=== PATIENT | female | born 1965 | race Caucasian/White ===

== ENCOUNTER 2016-09-14 09:17 | Inpatient (IN) | payer OTHER ==
[~2016-09-14] VITALS: Ht 165.1 cm; Wt 90.7 kg
[~2016-09-14 09:17] MED LIST: FLEXERIL10 MG PO; MOTRIN800 MG PO
--- NOTE | 2016-09-14 09:20 | NUR ---
PT BIBA AFTER FOUND UNRESPONSIVE. PER POLICE SHE HAD 3 EMPTY BOTTLES (NORVASC,LABATELOL,XANAX) PER POLICE SHE LOST HER JOB AND IS GOING THROUGH A DIVORCE. POLICE GAVE HER 2MG DOSE OF NARCAN IN FIELD WITH NO RESPONSE. EMS ADMINISTERED 1 MG GLUCAGON. HEART RATE WAS 48 WHEN EMS ARRIVED AND S/P GLUCAGON HR WAS 72. HX DEPRESSION..
--- NOTE | 2016-09-14 09:20 | NUR ---
DR URIAS AT BEDSIDE
--- NOTE | 2016-09-14 09:22 | NUR ---
PT IS CHANGED AND CLEANED. PLACED ON MONITOR
--- NOTE | 2016-09-14 09:26 | ED GENERAL ADULT ---
History of Present Illness General Chief Complaint: Altered Mental Status Stated Complaint: BIBA ?OVERDOSE Source: family, old records, EMS Exam Limitations: clinical condition Vital Signs & Intake/Output Vital Signs & Intake/Output Vital Signs Date Time Temp Pulse Resp B/P B/P Pulse O2 O2 Flow FiO2 Mean Ox Delivery Rate 09/14 1600 100 09/14 1600 100 09/14 1515 52 78/40 09/14 1440 58 78/42 09/14 1338 95.2 52 10 88/56 93 Nasal 5.0L Cannula 09/14 1252 50 80/50 09/14 1216 95.8 56 12 88/58 93 Nasal 5.0L Cannula 09/14 1148 50 78/58 09/14 1117 95.4 55 10 88/54 90 Nasal 5.0L Cannula 09/14 1055 56 72/44 09/14 1045 50 10 78/48 90 Nasal 3.0L Cannula 09/14 1020 54 83/54 90 / 1002 96.0 09/14 0954 94.3 55 12 89/52 96 09/14 0934 95.0 57 6 98/63 94 Nasal 2.0L Cannula 09/14 0930 93 Nasal 5.0L Cannula Allergies Coded Allergies: NO KNOWN ALLERGIES (11/28/14) Reconcile Medications CYCLOBENZAPRINE HCL (Flexeril) 10 MG TAB 1 TAB PO TID PRN SPASM Avoid operating motor vehicle or heavy machinery Empagliflozin (Jardiance) 10 MG TABLET 1 TAB PO DAILY dm (Reported) Ibuprofen (Motrin) 800 MG TAB 1 TAB PO TID PRN PAIN Insulin Glargine,Hum.rec.anlog (Lantus Solostar) 100 UNIT/ML (3 ML) INSULN.PEN 45 UNIT SC QPM dm (Reported) Levothyroxine Sodium (Synthroid) 100 MCG TABLET 1 TAB PO DAILY thyroidism ( Reported) Metformin HCl (Metformin HCl ER) 500 MG TAB.ER.24 1 TAB PO DAILY diabetes ( Reported) Quetiapine Fumarate (Seroquel XR) 400 MG TAB.ER.24H 1 TAB PO QPM depression ( Reported) Triage Nurses Notes Reviewed? yes HPI: Patient and her are going through divorce. This morning her son found her semi-responsive on the floor with empty pill bottles next to her. The pill bottles were for Xanax, labetalol and Norvasc. All the bottles are from 2016 so it is unknown known how many pills were in each of the bottles. Patient has no known history of depression or suicide attempt. Per family the only medical history is diabetes and hypothyroidism. Patient received 2 mg of intranasal Narcan by the police department without any effect. Upon EMS arrival patient was found to be bradycardic in the upper 40s. Patient received 1 mg of IV glucagon and her heart rate increased into the 60s. Her fingerstick was 259. Upon presentation to the emergency department patient is semi-responsive and will open up her eyes to commands. Only verbal response is to say no. Patient does have a gag reflex. Past History Travel History Traveled to [place] past 21 day No Medical History Any Pertinent Medical History? see below for history Neurological: NONE EENT: NONE Cardiovascular: NONE Respiratory: NONE Gastrointestinal: NONE Hepatic: NONE Renal: NONE Musculoskeletal: NONE Psychiatric: NONE Endocrine: diabetes, hypothyroidism Surgical History Surgical History: cholecystectomy, Psychosocial History What is your primary language Kazakh Tobacco Use: Cognitive Impairment ETOH Use: PT SEMI RESPONSIVE Family History Hx Contributory? No Review of Systems Review of Systems Constitutional: Reports: see HPI. Physical Exam Physical Exam General Appearance: well developed/nourished, awake, lethargic, severe distress Head: atraumatic, normal appearance Eyes: Bilateral: PERRL, EOMI, other (SLUGGISH). Ears, Nose, Throat: normal pharynx, normal ENT inspection, hearing grossly normal Neck: normal inspection, supple, full range of motion Respiratory: normal breath sounds, chest non-tender, no respiratory distress, lungs clear Cardiovascular: regular rate/rhythm, normal peripheral pulses Gastrointestinal: normal bowel sounds, soft, non-tender, no organomegaly Back: normal inspection, normal range of motion Extremities: normal inspection, normal capillary refill, normal range of motion, no edema Neurologic/Psych: EYE OPEN TO VERBAL STIMULAE, , MOVES ALL 4 EXTREMITIES Skin: NO SIGNS OF TRAUMA Core Measures ACS in differential dx? No CVA/TIA Diagnosis: No Severe Sepsis Present: No Septic Shock Present: No Progress Differential Diagnoses I considered the following diagnoses in my evaluation of the patient: [Overdose, electrolyte abnormality, alcohol intoxication, drug intoxication] Plan of Care: Orders Procedure Date/time Status CT HEAD WO IV CONTRAST 09/15 0800 Active URINE 09/14 UNK Complete Nothing by Mouth 05/12 D Active ICU LAB BUNDLE 09/14 2100 Active ARTERIAL BLOOD GAS (GEN) 09/14 2015 Active LACTIC ACID 09/14 2000 Active ICU LAB BUNDLE 09/14 2000 Active Weight 09/14 195 Active Vital Signs 09/14 1954 Active Turn and Reposition 09/14 1954 Active Drains/Tubes 09/14 1954 Active Teach/Educate 09/14 1954 Active Skin Integrity Protocol 09/14 1954 Active Skin/Pressure Ulcer Assess (Sk 09/14 1954 Active Precautions 09/14 1954 Active Pain Treatment and Response 09/14 1954 Active Nutritional Intake, Monitor 09/14 1954 Active Isolation 09/14 1954 Active Patient Care Conference 09/14 1954 Active Activity/Ambulation 09/14 1954 Active BLOOD CULTURE 09/14 194 Active ICU LAB BUNDLE 09/14 1900 Complete CBC WITHOUT DIFFERENTIAL 09/14 1900 Complete LACTIC ACID 09/14 1801 Complete TROPONIN LEVEL 09/14 1800 Complete LACTIC ACID 09/14 1800 Complete ICU LAB BUNDLE 09/14 1800 Complete ARTERIAL BLOOD GAS (GEN) 09/14 1730 Active ICU LAB BUNDLE 09/14 1700 Complete LOWER RESPIRATORY CULTURE 09/14 1639 Active PROTHROMBIN TIME 09/14 1538 Complete LACTIC ACID 09/14 1538 Complete TROPONIN LEVEL 09/14 1527 Complete VENTILATOR PARAMETERS 09/14 1523 Complete ICU LAB BUNDLE 09/14 1520 Complete ARTERIAL BLOOD GAS (GEN) 09/14 1449 Active VRE ACTIVE SURVIELLANCE 09/14 1416 Active ACTIVE SURVEILLANCE NARES 09/14 1416 Active Lab Add-on Test 09/14 1334 Active Lab Add-on Test 09/14 1303 Active ECHOCARDIOGRAM 09/14 1249 Active Intake & Output 09/14 1224 Active Add-on Test (ER Only) 09/14 1201 Active Lab Add-on Test 09/14 1154 Active Lab Add-on Test 09/14 1149 Active Lab Add-on Test 09/14 1148 Active Pathway - chart 09/14 1147 Active House Staff 09/14 1147 Active Code Status 09/14 1147 Active Patient Data 09/14 1141 Active Admit to inpatient 09/14 1132 Active ARTERIAL BLOOD GAS (GEN) 09/14 1047 Complete PROTHROMBIN TIME 09/14 0930 Complete PHOSPHORUS 09/14 0930 Complete MAGNESIUM 09/14 0930 Complete LACTIC ACID 09/14 0930 Complete GLYCOSYLATED HGB 09/14 0930 Complete FREE T4 09/14 0930 Complete CORTISOL AM 09/14 0930 Complete Telemetry/Traffic Engineering Director 09/14 925 Complete [place], Insertion/Removal/Asses 09/14 925 Active Continuous Observation Monitor 09/14 925 Complete CULTURE,URINE 09/14 925 Active URINE DRUGS OF ABUSE 09/14 925 Complete URINALYSIS 09/14 925 Complete THYROID STIMULATING HORMONE 09/14 925 Complete ETHANOL 09/14 925 Complete COMPREHENSIVE METABOLIC PANEL 09/14 925 Complete CBC WITHOUT DIFFERENTIAL 09/14 925 Complete EKG 09/14 925 Active ARTERIAL BLOOD GAS (GEN) 09/14 UNK Active Lab Add-on Test 09/14 UNK Active VTE Mechanical Prophylaxis 09/14 UNK Active Patient Safety Monitor 09/14 UNK Complete Restraint- Medical 09/14 UNK Complete Restraint- Medical 09/14 UNK Active Nursing Misc 09/14 UNK Active FingerStick- Glucose 09/14 UNK Active EKG 09/14 UNK Active Current Medications Sig/Kavon Start time Last Medication Dose Stop Time Status Admin Enoxaparin Sodium 40 MG DAILY 09/15 1000 AC (Lovenox) Insulin Human Regular 5,000 UNIT Q7H 09/15 1999 AC (Novolin R (Insulin Drip)) Sodium Chloride 500 ML (Normal Saline 0.9%) Sodium Bicarbonate 50 MEQ ONCE ONE 09/15 1999 AC (Sodium Bicarbonate 09/14 2000 8.4% Syringe) Potassium Chloride 20 MEQ Q1H 09/14 1930 AC 09/14 193 Lorazepam 2 MG Q1P PRN 09/14 191 AC 09/14 (Ativan) 1921 Magnesium Sulfate 1 GM ONCE ONE 09/14 1830 AC 09/14 (Mag Sulfate in D5) 09/14 2229 1830 Dextrose/Water 100 ML (D5W) Ampicillin Sodium/ 3,000 MG Q6 09/14 1800 AC Sulbactam Sodium (Unasyn) Sodium Chloride 100 ML (Normal Saline 0.9%) Pantoprazole Sodium 40 MG DAILY 09/14 1715 AC 09/14 (Protonix) 1918 Insulin Human Regular 1,000 UNIT Q4H 09/14 1700 AC 09/14 (Novolin R (Insulin 09/15 1999 1924 Drip)) Sodium Chloride 1,000 ML (Normal Saline 0.9%) Dextrose/Water 1,000 ML .Q10H 05/12 1515 AC 09/14 (Dextrose 10%) 1515 Vasopressin 40 UNITS Q16H 09/14 1515 AC 09/14 (Pitressin) 1515 Sodium Chloride 100 ML (Normal Saline 0.9%) Dopamine HCl 400 MG Q12H 09/14 1500 AC 09/14 Dextrose/Water 500 ML 1515 (D5W) Phenylephrine HCl 40 MG Q24H 09/14 1500 CAN (Neosynephrine Drip (Phenylephrine)) Sodium Chloride 250 ML (Normal Saline 0.9%) Norepinephrine 4 MG Q24H 09/14 1445 AC 09/14 (Levophed Drip) 1440 Sodium Chloride 250 ML (Normal Saline 0.9%) Insulin Human Regular 90 UNITS ONCE ONE 09/14 1415 CAN (NovoLIN R) 09/14 1416 Insulin Human Regular 100 UNIT Q24H 09/14 1415 CAN (Novolin R (Insulin Drip)) Sodium Chloride 100 ML (Normal Saline 0.9%) Laboratory Tests 09/14/161955: Lactic Acid Cancelled 09/14/161909: Anion Gap 25 H, Estimated GFR 58 L, Glucose 362 H, Calcium 7.3 L, Phosphorus 2.1 L, Magnesium 1.4 L, Total Bilirubin 0.9, AST 55 H, ALT 42, Albumin 2.5 L , CBC w Diff MAN DIFF ORDERED, RBC 4.21, MCV 71.6 L, MCH 21.9 L, RDW 17.9 H, MPV 9.2, Gran % 91.5 H, Lymphocytes % 4.2 L, Monocytes % 4.3, Eosinophils % 0, Basophils % 0 L, Absolute Granulocytes 19.3 H, Segmented Neutrophils 81 H, Band Neutrophils 12 H, Absolute Lymphocytes 0.9 L, Lymphocytes 3 L, Monocytes 4, Absolute Monocytes 0.9 H, Absolute Eosinophils 0, Absolute Basophils 0, Platelet Estimate ADEQUATE, Anisocytosis 2+, Microcytic Cells 2+, Ovalocytes FEW , Elliptocytes FEW, PUBS MCHC 30.5 L 09/14/161899: pH 7.24 *L, pCO2 17 L, pO2 143 H, HCO3 7.5 L, ABG O2 Sat (Measured) 98.0, P- 50 (Temp Corrected) Y, Carboxyhemoglobin 0.3 L, O2 Concentration % 50, Temperature 92.1 L, Respiration Rate 30, O2 Delivery Method ESPRIT, Vent Mode AC, Expiratory Pressure 5, Tidal Volume 550, Lactic Acid Cancelled, Phlebotomy Draw Site JUAN M 09/14/16 1805: Lactic Acid 16.7 H 09/14/16 1805: Anion Gap 23 H, Estimated GFR 58 L, Glucose 371 H, Calcium 7.3 L, Phosphorus 2.0 L, Magnesium 1.4 L, Total Bilirubin 0.9, AST 49 H, ALT 40, Albumin 2.4 L 09/14/16 1730: pH 7.16 *L, pCO2 19 L, pO2 124 H, HCO3 6.7 L, ABG O2 Sat (Measured) 97.0, P- 50 (Temp Corrected) N, Carboxyhemoglobin 0 L, O2 Concentration % 50%, Temperature 95.7 L, Respiration Rate 30, O2 Delivery Method ESPRIT, Vent Mode AC, Expiratory Pressure 5, Tidal Volume 550, Phlebotomy Draw Site RIGHT BRACHIAL 09/14/16 1700: Anion Gap 21 H, Estimated GFR 58 L, Glucose 318 H, Lactic Acid 14.1 H, Calcium 7.4 L, Phosphorus 2.4 L, Magnesium 1.5 L, Total Bilirubin 0.9, AST 30 , ALT 35, Troponin I 0.02, Albumin 2.6 L 09/14/16 1625: Lactic Acid 13.0 H 09/14/16 1625: Sodium Cancelled, Potassium Cancelled, Chloride Cancelled, Carbon Dioxide Cancelled, Anion Gap Cancelled, BUN Cancelled, Creatinine Cancelled, Glucose Cancelled, Calcium Cancelled, Phosphorus Cancelled, Magnesium Cancelled, Total Bilirubin Cancelled, AST Cancelled, ALT Cancelled, Troponin I Cancelled, Albumin Cancelled 09/14/16 162: Sodium Cancelled, Potassium Cancelled, Chloride Cancelled, Carbon Dioxide Cancelled, Anion Gap Cancelled, BUN Cancelled, Creatinine Cancelled, Glucose Cancelled, Calcium Cancelled, Phosphorus Cancelled, Magnesium Cancelled, Total Bilirubin Cancelled, AST Cancelled, ALT Cancelled, Troponin I Cancelled, Albumin Cancelled, PT 14.6 H, INR 1.40 H 09/14/16 1610: pH 7.18 *L, pCO2 20 L, pO2 456 H, HCO3 7 L, ABG O2 Sat (Measured) 99.0, P-50 (Temp Corrected) N, Carboxyhemoglobin 0.2 L, O2 Concentration % 100, Temperature 95.0 L, Respiration Rate 28, O2 Delivery Method ESPRIT, Vent Mode AC, Expiratory Pressure 5, Tidal Volume 550, Phlebotomy Draw Site RIGHT BRACHIAL 09/14/16 1527: Anion Gap 19 H, Estimated GFR 58 L, Glucose 351 H, Calcium 7.7 L, Phosphorus 3.3, Magnesium 1.6, Total Bilirubin 0.8, AST 23, ALT 33, Troponin I 0.01, Albumin 2.7 L 09/14/16 1055: pH 7.33 L, pCO2 39, pO2 69 L, HCO3 20 L, ABG O2 Sat (Measured) 93.0 L, P-50 (Temp Corrected) YES, Carboxyhemoglobin 0.1 L, O2 Concentration % 5L, Temperature 96.0 L, O2 Delivery Method NC, Phlebotomy Draw Site RIGHT RADIAL 09/14/16 1000: Sodium Cancelled, Potassium Cancelled, Chloride Cancelled, Carbon Dioxide Cancelled, Anion Gap Cancelled, BUN Cancelled, Creatinine Cancelled, Glucose Cancelled, Calcium Cancelled, Phosphorus Cancelled, Magnesium Cancelled, Total Bilirubin Cancelled, AST Cancelled, ALT Cancelled, Albumin Cancelled, Urine Test NEGATIVE 09/14/16 0946: Urine Opiates Screen < 100.00, Methadone Screen < 40, Barbiturate Screen < 60, Ur Phencyclidine Scrn < 6.00, Amphetamines Screen < 100, U Benzodiazepines Scrn > 800 H, Urine Cocaine Screen < 50, Urine Cannabis Screen < 5.00, Urinalysis LIGHT H, Urine Color YEL, Urine Clarity HAZY H, Urine pH 6.0, Ur Specific [place] 1.025, Urine Protein TRACE H, Urine Ketones TRACE H, Urine Nitrite POS H, Urine Bilirubin NEG, Urine Urobilinogen 0.2, Ur Leukocyte Esterase MOD H, Ur Microscopic SEDIMENT EXAMINED, Urine RBC 25-50 H, Urine WBC > 75 H, Ur Epithelial Cells MOD H, Urine Bacteria PACKD H, Urine Hemoglobin LARGE H, Urine Glucose >=1000 H 09/14/16 0930: Lactic Acid 1.3 09/14/16 0930: Anion Gap 12, Estimated GFR > 60, BUN/Creatinine Ratio 20.0, Glucose 326 H, Hemoglobin A1c 8.1 H, Calcium 9.1, Phosphorus 4.0, Magnesium 1.8, Total Bilirubin 1.0, AST 22, ALT 39, Alkaline Phosphatase 108, Total Protein 6.6, Albumin 3.6, Globulin 3.0, Albumin/Globulin Ratio 1.2, TSH 2.510, Free T4 1.76, Cortisol AM Sample 42.4 H, PT 12.0, INR 1.14, CBC w Diff NO MAN DIFF REQ, RBC 5.04, MCV 69.2 L, MCH 22.1 L, RDW 17.8 H, MPV 8.2, Gran % 80.0 H, Lymphocytes % 14.7 L, Monocytes % 5.0, Eosinophils % 0.1, Basophils % 0.2, Absolute Granulocytes 7.2 H, Absolute Lymphocytes 1.3, Absolute Monocytes 0.4, Absolute Eosinophils 0, Absolute Basophils 0, PUBS MCHC 31.9 L, Serum Alcohol < 10.0 Microbiology 09/14 1946 BLOOD: Blood Culture - ORD 09/14 1946 BLOOD: Blood Culture - ORD 09/14 1649 LOWER RESP: Respiratory Culture - RECD 09/14 1650 LOWER RESP: Gram Stain - RECD 09/14 1420 UPPER RESP: Surveillance Culture - RECD 09/14 1420 GI: Surveillance Culture - RECD 09/14 0946 URINE ROUT: Urine Culture - RECD Initial ED EKG: SR AT 55 WITH RBBB AND NSSTT CHANGES. NO OLD TO COMPARE, Rhythm Strip: sinus bradycardia Comments: Patient's blood pressure and heart rate continued to decrease. Patient given IV fluids. Patient given 5 mg of IV glucagon over 5 minutes. Patient's blood pressure slowly responded. Patient's heart rate also increased from 51 up to 60. Patient will also be given 1 g of calcium gluconate. Patient vomited and was given 4 mg of IV Zofran. Departure Departure Disposition: STILL A PATIENT Condition: Critical Clinical Impression Primary Impression: Suicide attempt by beta cheri overdose Referrals: BRYANT NIXON,GEO Riggs (PCP/Family) Departure Forms: Customer Survey General Discharge Information Admission Note Spoke With: Jacquelin BARBER MD Documentation of Exam: Documentation of any treatments & extenuating circumstances including Concerns Regarding Discharge (functional status, medication knowledge or non-compliance, living conditions, etc.) that warrant an admission rather than observation: [ ADMIT TO ICU, GLUCAGON DRIP, CARDIOLOGY CONSULTATION, PSYCH EVAL, SITTER.] Critical Care Note Critical Care Note Critical Care Time: mins: (90 MIN)
--- NOTE | 2016-09-14 09:30 | NUR ---
PT O2 SAT ON RA ON ARRIVAL WAS 90. PT PLACED ON 2L NC AND ORAL AIRWAY INSERTED BY RN [place] LEFT NARE.
[2016-09-14 09:40] LABS: ABSOLUTE BASOPHIL COUNT 0 /CUMM (0.0-0.2); ABSOLUTE EOSINOPHIL COUNT 0 /CUMM (0.0-0.7); ABSOLUTE GRANULOCYTE CT 7.2 /CUMM (1.4-6.5); ABSOLUTE LYMPH COUNT 1.3 /CUMM (1.2-3.4); ABSOLUTE MONOCYTE COUNT 0.4 /CUMM (0.10-0.60); BASOPHIL % 0.2 % (0.0-2.0); EOSINOPHIL % 0.1 % (0-5); HEMATOCRIT 34.9 % (37-47); MEAN CORPUSCULAR HGB 22.1 PG (27.0-31.0); MEAN CORPUSCULAR HGB CONC 31.9 G/DL (33.0-37.0); MEAN CORPUSCULAR VOLUME 69.2 FL (81.0-99.0); MEAN PLATELET VOLUME 8.2 FL (7.4-10.4); PLATELET COUNT 255 /CUMM (130-400); RBC DISTRIBUTION WIDTH 17.8 % (11.5-14.5)
--- NOTE | 2016-09-14 09:51 | NUR ---
SWIFT INSERTED AND OUTPUT 100ML
[2016-09-14 09:55] LABS: RED BLOOD CELL CT 5.04 /CUMM (4.20-5.40)
--- NOTE | 2016-09-14 10:00 | NUR ---
2ND LITER FLUIDS RUNNING PER EMAR
--- NOTE | 2016-09-14 10:50 | NUR ---
RESP AT BEDSIDE FOR ABG DRAW
--- NOTE | 2016-09-14 11:02 | NUR ---
PT MEDICATED PER EMAR WITH GLUCAGON 3 AND 4 LITER RUNNING
--- NOTE | 2016-09-14 11:09 | NUR ---
PT VOMITTED THIS RN AND DR URIAS AT BEDSIDE. PT WAS SUCTIONED AIRWAY IS CLEAR AND SAT IS 92%
--- NOTE | 2016-09-14 11:18 | NUR ---
DR URIAS AT BEDSIDE TALKING TO FAMILY
--- NOTE | 2016-09-14 11:30 | NUR ---
UNABLE TO VERIFY HOME MEDS DUE TO CURRENT CIRCUMSTANCES
--- NOTE | 2016-09-14 11:44 | History & Physical ---
FLORINA NIXON,LIVE 09/14/16 1144: General Information and HPI MD Statement: I have seen and personally examined REBECCA AGARWAL and documented this H&P. The patient is a 51 year old F who presented with a patient stated chief complaint of [unrespponsiveness]. Source of Information: family History of Present Illness: This is a 51-year-old female with a past medical history of insulin-dependent diabetes mellitus,, anxiety, depression, hypothyroidism, who presented to the [facility] after having overdosed on unknown amount of beta cheri( labetalol 100 mg tablets),amldipine (5 mg tablets)and Xanax(0.5 mg tablets). The patient has an extensive history of anxiety and depression has been following up with a psychiatrist. She has not been able to refill her prescription for for Seroquel due to insurance issues and has been trying to get in touch with her psychiatrist for her alternative medication.. She also has been undergoing a lot of social stresses which includes going through a divorce and extensive stresses at her workplace. After talking to the patient's son the patient has been having persistent suicidal thoughts for the last 3 days and has brought up the idea that she might end her life. In the morning today@ 8 30 am the son heard a huge thud and found her mother lying on the floor with empty bottles labetalol,amldipine and xanax. She was barely arousable at that time and had rolling of her eyes when addressed.911 was called and one was BIBA to .One dose of narcan was given in the field with no response.There was no evdience of vomiting,uriney or bowel incontinence. She apparantley overdosed on her 's medication labetalol(100 mg tablets which were filled in June 2016 with 120 tablets) and Norvasc 5 mg tablets which were filled in March 2016 with 100 tablets . The exact amount of medication cannot be completely determined. Patient received 1 dose of Narcan in the field which she did not respond Allergies/Medications Allergies: Coded Allergies: NO KNOWN ALLERGIES (11/28/14) Home Med list CYCLOBENZAPRINE HCL (Flexeril) 10 MG TAB 1 TAB PO TID PRN SPASM Avoid operating motor vehicle or heavy machinery Empagliflozin (Jardiance) 10 MG TABLET 1 TAB PO DAILY dm (Reported) Ibuprofen (Motrin) 800 MG TAB 1 TAB PO TID PRN PAIN Insulin Glargine,Hum.rec.anlog (Lantus Solostar) 100 UNIT/ML (3 ML) INSULN.PEN 45 UNIT SC QPM dm (Reported) Levothyroxine Sodium (Synthroid) 100 MCG TABLET 1 TAB PO DAILY thyroidism ( Reported) Metformin HCl (Metformin HCl ER) 500 MG TAB.ER.24 1 TAB PO DAILY diabetes ( Reported) Quetiapine Fumarate (Seroquel XR) 400 MG TAB.ER.24H 1 TAB PO QPM depression ( Reported) Past History Travel History Traveled to [place] past 21 day No Medical History Neurological: NONE EENT: NONE Cardiovascular: NONE Respiratory: NONE Gastrointestinal: NONE Hepatic: NONE Renal: NONE Musculoskeletal: NONE Psychiatric: NONE Endocrine: diabetes, hypothyroidism Isolation History: Standard Surgical History Surgical History: cholecystectomy, Past Family/Social History Family History Relations & Conditions if any MOTHER Relation not specified for: FH: diabetes mellitus FH: hypertension Psychosocial History Who Do You Live With? child, self Services at Home: None Primary Language: Irish Smoking Status: Never Smoked ETOH Use: occasional use, PT SEMI RESPONSIVE, as per family drinks once a month Review of Systems Review of Systems Constitutional: Reports: see HPI. Cardiovascular: Reports: see HPI. Respiratory: Reports: see HPI. GI: Reports: see HPI. Exam & Diagnostic Data Last 24 Hrs of Vital Signs/I&O Vital Signs Date Time Temp Pulse Resp B/P B/P Pulse O2 O2 Flow FiO2 Mean Ox Delivery Rate 09/14 1252 50 80/50 09/14 1216 95.8 56 12 88/58 93 Nasal 5.0L Cannula 09/14 1148 50 78/58 09/14 1117 95.4 55 10 88/54 90 Nasal 5.0L Cannula 09/14 1055 56 72/44 09/14 1045 50 10 78/48 90 Nasal 3.0L Cannula 09/14 1020 54 83/54 90 09/14 1002 96.0 09/14 0954 94.3 55 12 89/52 96 09/14 0934 95.0 57 6 98/63 94 Nasal 2.0L Cannula 09/14 0930 93 Nasal 5.0L Cannula Intake & Output 09/14 1600 09/14 0800 09/14 0000 Intake Total 4300 Output Total 300 Balance 4000 Intake, IV 4300 Output, Urine 300 Patient 200 lb Weight Weight Estimated Measurement Method Physical Exam General Appearance Patient is unarousable, Grimace to sternal rub Skin No Rashes, No Breakdown Skin Temp/Moisture Exam: Warm/Dry HEENT Atraumatic Neck Supple, No JVD Lymphatic Axillary nl, Cervical nl Cardiovascular Regular Rate, Normal S1, Normal S2 Abdomen Soft, No Tenderness Neurological not performed due to condition normal pupillary relfexes,pupils slightly dilated and reactive,but sluggish Extremities No Edema, Normal Pulses Last 24 Hrs of Labs/Alexis: Laboratory Tests 09/14/16 1055: pH 7.33 L, pCO2 39, pO2 69 L, HCO3 20 L, ABG O2 Sat (Measured) 93.0 L, P-50 (Temp Corrected) YES, Carboxyhemoglobin 0.1 L, O2 Concentration % 5L, Temperature 96.0 L, O2 Delivery Method NC, Phlebotomy Draw Site RIGHT RADIAL 09/14/16 1000: Urine Test NEGATIVE 09/14/16 0946: Urine Opiates Screen < 100.00, Methadone Screen < 40, Barbiturate Screen < 60, Ur Phencyclidine Scrn < 6.00, Amphetamines Screen < 100, U Benzodiazepines Scrn > 800 H, Urine Cocaine Screen < 50, Urine Cannabis Screen < 5.00, Urinalysis LIGHT H, Urine Color YEL, Urine Clarity HAZY H, Urine pH 6.0, Ur Specific [place] 1.025, Urine Protein TRACE H, Urine Ketones TRACE H, Urine Nitrite POS H, Urine Bilirubin NEG, Urine Urobilinogen 0.2, Ur Leukocyte Esterase MOD H, Ur Microscopic SEDIMENT EXAMINED, Urine RBC 25-50 H, Urine WBC > 75 H, Ur Epithelial Cells MOD H, Urine Bacteria PACKD H, Urine Hemoglobin LARGE H, Urine Glucose >=1000 H 09/14/16 0930: Lactic Acid 1.3 09/14/16 0930: Anion Gap 12, Estimated GFR > 60, BUN/Creatinine Ratio 20.0, Glucose 326 H, Calcium 9.1, Magnesium 1.8, Total Bilirubin 1.0, AST 22, ALT 39, Alkaline Phosphatase 108, Total Protein 6.6, Albumin 3.6, Globulin 3.0, Albumin/Globulin Ratio 1.2, TSH 2.510, PT 12.0, INR 1.14, CBC w Diff NO MAN DIFF REQ, RBC 5.04, MCV 69.2 L, MCH 22.1 L, RDW 17.8 H, MPV 8.2, Gran % 80.0 H, Lymphocytes % 14.7 L, Monocytes % 5.0, Eosinophils % 0.1, Basophils % 0.2, Absolute Granulocytes 7.2 H, Absolute Lymphocytes 1.3, Absolute Monocytes 0.4, Absolute Eosinophils 0, Absolute Basophils 0, PUBS MCHC 31.9 L, Serum Alcohol < 10.0 Microbiology 09/14 0946 URINE ROUT: Urine Culture - RECD Assessment/Plan Assessment: This is a 51-year-old female with a past medical history of hypothyroidism diabetes mellitus anxiety depression who presented to the [facility] after overdosing on labetalol and Norvasc. Blood pressure 80/50, respiration rate of 18, pulse rate of 52, temperature afebrile, Labs WBC of 10,000, normal hemoglobin and hematocrit, normal chemistries, lactic acid of 1.3, glucose of 326 no anion gap EKGs shows sinus bradycardia to 52,NEW right bundle branch block.(no baseline EKG foir comparison) Chest x-ray shows round 4 cm density overlying the right lung base, suspicious for a mass. Further assessment with contrast-enhanced chest CT is recommended. Assessment 1. Suicide attempt with overdose of calcium channel and beta cheri of unknown quantity. 2. History of diabetes mellitus 3. History of hypothyroidism 4. New 4 cm density on the chest x-ray 5. History of anxiety and depression Plan Admit to ICU Unarousable with slight grimace on sternal rub Rule out any ischemic stroke or hemorrhage with head CT IV glucagon drip currently running at 3 ML 5 minutes The patient would require High dose IV insulin and hence we will start the patient on D5 half-normal saline with regular Accu-Cheks.Can use D10 if needed. Endocrinology and cardiology consult(I personally spoke to Dr Winslow and Dr Hooks regardig the patient) HbA1c IV Unasyn for aspiration prophylaxis Chest CT to further evaluated the the mass on x-ray She will also need TTE Blood cultures if spikes or becomes hypothermic Contact poison control and follow-up their recommendations 1-1 sitter Psych consult once the patient is stable GI PPX with PPI. Patient is full code DVT prophylaxis with subcutaneous Lovenox K. Gisel oRse MD and I Extensive discussion with the family including the and 3 son. 3 updated them about the plan and the plan of care. Reassurance was provided. Patirent remians criticaly ILL and will transfer the patient to ICU for closer minioring. As Ranked By This Provider Problem List: 1. Suicide attempt by beta cheri overdose Core Measures/Miscellaneous Acute Coronary Syndrome ACS Diagnosis: No Cerebrovascular Accident CVA/TIA Diagnosis: No Congestive Heart Failure CHF Diagnosis: No Venous Thromboembolism VTE Risk Factors: Acute medical illness, Age > 40 [facility] prophylaxis d/t: VTE low risk, No contraindications No VTE Pharm Prophylaxis d/t: VTE low risk, No contraindications VTE Diagnosis: No VTE Type: NONE VTE Confirmed by (Test): NONE Severe Sepsis Severe Sepsis Present: No Septic Shock Septic Shock Present: No Miscellaneous Documentation Attending Case Discussed With: Jacquelin Rose MD Primary Care Physician: GEO HURTADO MD Patient sees these Specialists None Level of Patient Care: Critical Care (CRI) ELISABETH NIXON,Jacquelin PETERS 09/14/16 1731: Attending MD Review Statement Attending Statement Attending MD Statement: examined this patient, discuss w/resident/PA/AGRICULTURAL ECONOMICS PROFESSOR, agreed w/resident/PA/AGRICULTURAL ECONOMICS PROFESSOR, discussed with family, reviewed EMR data (avail), discussed with nursing, reviewed images, amended to note Attending Assessment/Plan: Late entry: I personally seen and examined the patient at the time of admission. I reviewed the resident's assessment and plan and agree with the details above. Briefly, the patient is a 51-year-old female with a past medical history of insulin-dependent diabetes with insulin noncompliance, anxiety, depression, and hypothyroidism. The patient was brought in to [facility] after having been found to have an acute change in mental status by a family member. She had been talking to her son for the previous 3 days about suicidal ideation. The patient was leave to collapse soon after the overdose. She was found with multiple empty pill bottles around her. She ingested an unknown number of tablets. The patient received 1 dose of Narcan in the field to which she did not respond. EMS reported the patient to be bradycardic with a heart rate in the 40s. She received 1 mg of IV glucagon with some mild response of her heart rate into the 60s. Her fingerstick was 259. In the ED, the patient had an altered mental status and was semi-responsive but protecting her airway. She was opening her eyes to commands. Initial laboratory studies showed a potassium of 3.2 but no evidence of anion gap acidosis. Initial blood gas showed a pH 7.33, PCO2 39, PO2 69, and bicarbonate of 20. She was given doses of IV glucagon, IV calcium gluconate and given IVF resuscitation with improvement in the patient's BP and heart rate. She was given IV ceftriaxone empirically for possible aspiration. CXR showed a round 4 cm density overlying the right lung base. CT chest showed a large round 3.6 x 3.7 x 3.5 cm right middle lobe mass obstructing the lateral segment of the right middle lobe bronchus, suspicious for neoplasm. There was no evidence of lymphadenopathy. The plan is to contact poison control immediately and follow recommendations. We have called in a cardiology consult. We will continue IV glucagon. We are calling and endocrinology consult as well, noting that patients with calcium channel blockers become unstable will require high-dose insulin drips. We will monitor the patient's respiratory status and intubate the patient and provide mechanical ventilation if her respiratory status deteriorates. The patient will be pancultured and again on empiric IV Unasyn for possible aspiration. I have discussed the care of the patient with her family at length including her , mother and 3 sons. I have informed them that the patient has the potential to become critically ill and we will need to monitor her closely in the critical care unit.
--- NOTE | 2016-09-14 11:48 | RADIOLOGY REPORT ---
EXAMINATION: XR PORTABLE CHEST CLINICAL INFORMATION: Pneumonia COMPARISON: None TECHNIQUE: Portable frontal view of the chest was obtained. FINDINGS: The lungs are mildly hypoinflated. There is a rounded, approximately 4 cm density overlying the right lung base. No additional consolidation is seen. No evidence of pneumothorax, pleural effusion, or pulmonary edema. Cardiac size is at the upper limits of normal for technique. No acute osseous findings are seen. IMPRESSION: Round 4 cm density overlying the right lung base, suspicious for a mass. Further assessment with contrast-enhanced chest CT is recommended. This critical result was discussed with LEANN URIAS on 09/14/2016 11:43 AM, and it was ascertained that the content and urgency of the report was understood at the time of direct communication.
--- NOTE | 2016-09-14 12:33 | NUR ---
PT TO ROOM 109 BED 1
[2016-09-14] MEDS ORDERED: SYNTHROID100 MCG PO (12:42)
[2016-09-14] MEDS ORDERED: JARDIANCE10 M1 PO (12:43)
[2016-09-14] MEDS ORDERED: METFORMIN HCL500 M2 PO (12:43)
[2016-09-14] MEDS ORDERED: SEROQUEL XR400 M1 PO (12:44)
[2016-09-14] MEDS ORDERED: LANTUS SOL100 UNIT/1 SC (12:44)
--- NOTE | 2016-09-14 13:38 | NUR ---
REPORT GIVEN TO EGG SEPARATOR IN ICU
--- NOTE | 2016-09-14 13:43 | Cons- Cardiology ---
General Information and HPI Consulting Request Date of Consult: 09/14/16 Requested By: Carlos BLACKWELL MD Reason for Consult: Multiple drug overdose with bradycardia and hypotension Source of Information: family, EMS Exam Limitations: unable to give history History of Present Illness: The patient is a 51-year-old female who apparently took some of her 's medications including labetalol, Norvasc and Xanax. According to the there were not a lot of pills in the bottles but they were empty when he found her unresponsive and called membership sales representative. In the emergency department she was bradycardic and mildly hypotensive. She was given glucagon with some increase in heart rate. Currently she is unresponsive with a nasal trumpet in place. She is breathing about 12 times a minute and oxygen saturations are satisfactory. Her blood pressure is in the 90 systolic range. She is in sinus rhythm on the monitor. Her EKG is quite abnormal but there are no old EKGs in the system to compare. There is a history of diabetes but apparently no history of heart disease. Allergies/Medications Allergies: Coded Allergies: NO KNOWN ALLERGIES (11/28/14) Home Med List: CYCLOBENZAPRINE HCL (Flexeril) 10 MG TAB 1 TAB PO TID PRN SPASM Avoid operating motor vehicle or heavy machinery Empagliflozin (Jardiance) 10 MG TABLET 25 MG PO DAILY dm (Reported) Ibuprofen (Motrin) 800 MG TAB 1 TAB PO TID PRN PAIN Insulin Glargine,Hum.rec.anlog (Lantus Solostar) 100 UNIT/ML (3 ML) INSULN.PEN 54 UNIT SC QPM dm (Reported) Levothyroxine Sodium (Synthroid) 100 MCG TABLET 1 TAB PO DAILY thyroidism ( Reported) Metformin HCl (Metformin HCl ER) 500 MG TAB.ER.24 1 TAB PO DAILY diabetes ( Reported) Quetiapine Fumarate (Seroquel XR) 400 MG TAB.ER.24H 1 TAB PO QPM depression ( Reported) Review of Systems Review of Systems: Unable to be obtained Past History Travel History Traveled to [place] past 21 day No Medical History Neurological: NONE EENT: NONE Cardiovascular: NONE Respiratory: NONE Gastrointestinal: NONE Hepatic: NONE Renal: NONE Musculoskeletal: NONE Psychiatric: NONE Endocrine: diabetes, hypothyroidism Surgical History Surgical History: cholecystectomy, Family History Relations & Conditions If Any: MOTHER Relation not specified for: FH: diabetes mellitus FH: hypertension Psychosocial History ETOH Use: PT SEMI RESPONSIVE Exam & Diagnostic Data Vital Signs and I&O Vital Signs Date Time Temp Pulse Resp B/P B/P Pulse O2 O2 Flow FiO2 Mean Ox Delivery Rate 09/14 1252 50 80/50 09/14 1216 95.8 56 12 88/58 93 Nasal 5.0L Cannula 09/14 1148 50 78/58 09/14 1117 95.4 55 10 88/54 90 Nasal 5.0L Cannula 09/14 1055 56 72/44 09/14 1045 50 10 78/48 90 Nasal 3.0L Cannula 09/14 1020 54 83/54 90 09/14 1002 96.0 09/14 0954 94.3 55 12 89/52 96 09/14 0934 95.0 57 6 98/63 94 Nasal 2.0L Cannula 09/14 0930 93 Nasal 5.0L Cannula Intake & Output 09/14 1600 09/14 0800 09/14 0000 09/13 1600 09/13 0800 09/13 0000 Intake Total 4300 Output Total 300 Balance 4000 Intake, IV 4300 Output, Urine 300 Patient 200 lb Weight Weight Estimated Measurement Method Physical Exam: She is a middle-aged obese female unresponsive but spontaneously breathing HEENT exam is grossly normal Chest reveals good aeration both sides Heart reveals a regular rhythm with soft heart sounds and no murmurs Abdomen is soft Extremities reveal no edema and pulses are present Labs/Alexis Results: Laboratory Tests 09/14 09/14 1055 UNK Blood Gas pH (7.35 - 7.45 PH) 7.33 L pCO2 (35 - 45 TORR) 39 pO2 (80 - 100 TORR) 69 L HCO3 (21 - 28 MEQ/L) 20 L ABG O2 Sat (Measured) (>96.0 %) 93.0 L P-50 (Temp Corrected) YES Carboxyhemoglobin (1.5 - 5.0 %) 0.1 L O2 Concentration % 5L Temperature (97.0 - 100.0 FARH) 96.0 L O2 Delivery Method NC Miscellaneous Phlebotomy Draw Site RIGHT RADIAL Urines Urine Test NEGATIVE 09/14 09/14 0946 0930 Chemistry Lactic Acid (0.7 - 2.1 mmol/L) 1.3 Toxicology Urine Opiates Screen (>2000 NG/ML) < 100.00 Methadone Screen (>300 NG/ML) < 40 Barbiturate Screen (>200 NG/ML) < 60 Ur Phencyclidine Scrn (>25 NG/ML) < 6.00 Amphetamines Screen (>1000 NG/ML) < 100 U Benzodiazepines Scrn (>200 NG/ML) > 800 H Urine Cocaine Screen (>300 NG/ML) < 50 Urine Cannabis Screen (>50 NG/ML) < 5.00 Urines Urinalysis LIGHT H Urine Color (YEL,AMB,STR) YEL Urine Clarity (CLEAR) HAZY H Urine pH (5.0 - 8.0) 6.0 Ur Specific [place] (1.001 - 1.035) 1.025 Urine Protein (NEG,<30 MG/DL) TRACE H Urine Ketones (NEG) TRACE H Urine Nitrite (NEG) POS H Urine Bilirubin (NEG) NEG Urine Urobilinogen (0.1 - 1.0 EU/dl) 0.2 Ur Leukocyte Esterase (NEG) MOD H Ur Microscopic SEDIMENT EXAMINED Urine RBC (0 - 5 /HPF) 25-50 H Urine WBC (0 - 2 /HPF) > 75 H Ur Epithelial Cells (NONE,FEW) MOD H Urine Bacteria (NEG/NONE) PACKD H Urine Hemoglobin (NEG) LARGE H Urine Glucose (N MG/DL) >=1000 H 05/12 0930 Chemistry Sodium (137 - 145 mmol/L) 140 Potassium (3.5 - 5.1 mmol/L) 3.2 L Chloride (98 - 107 mmol/L) 103 Carbon Dioxide (22 - 30 mmol/L) 24 Anion Gap (5 - 16) 12 BUN (7 - 17 mg/dL) 12 Creatinine (0.5 - 1.0 mg/dL) 0.6 Estimated GFR (>60 ml/min) > 60 BUN/Creatinine Ratio (7 - 25 %) 20.0 Glucose (65 - 99 mg/dL) 326 H Calcium (8.4 - 10.2 mg/dL) 9.1 Phosphorus (2.5 - 4.5 mg/dL) 4.0 Magnesium (1.6 - 2.3 mg/dL) 1.8 Total Bilirubin (0.2 - 1.3 mg/dL) 1.0 AST (14 - 36 U/L) 22 ALT (9 - 52 U/L) 39 Alkaline Phosphatase (<127 U/L) 108 Total Protein (6.3 - 8.2 g/dL) 6.6 Albumin (3.5 - 5.0 g/dL) 3.6 Globulin (1.9 - 4.2 gm/dL) 3.0 Albumin/Globulin Ratio (1.1 - 2.2 %) 1.2 TSH (0.270 - 4.200 uIU/mL) 2.510 Coagulation PT (9.4 - 12.5 SEC) 12.0 INR (0.90 - 1.19) 1.14 Hematology CBC w Diff NO MAN DIFF REQ WBC (4.8 - 10.8 /CUMM) 9.0 RBC (4.20 - 5.40 /CUMM) 5.04 Hgb (12.0 - 16.0 G/DL) 11.1 L Hct (37 - 47 %) 34.9 L MCV (81.0 - 99.0 FL) 69.2 L MCH (27.0 - 31.0 PG) 22.1 L RDW (11.5 - 14.5 %) 17.8 H Plt Count (130 - 400 /CUMM) 255 MPV (7.4 - 10.4 FL) 8.2 Gran % (42.2 - 75.2 %) 80.0 H Lymphocytes % (20.5 - 51.1 %) 14.7 L Monocytes % (1.7 - 9.3 %) 5.0 Eosinophils % (0 - 5 %) 0.1 Basophils % (0.0 - 2.0 %) 0.2 Absolute Granulocytes (1.4 - 6.5 /CUMM) 7.2 H Absolute Lymphocytes (1.2 - 3.4 /CUMM) 1.3 Absolute Monocytes (0.10 - 0.60 /CUMM) 0.4 Absolute Eosinophils (0.0 - 0.7 /CUMM) 0 Absolute Basophils (0.0 - 0.2 /CUMM) 0 PUBS MCHC (33.0 - 37.0 G/DL) 31.9 L Toxicology Serum Alcohol (<10 MG/DL) < 10.0 Diagnostic Data EKG Results EKG shows sinus rhythm a rate of 55. There is right bundle branch block, left axis deviation, LVH, borderline prolonged QT interval. There were no old EKGs for comparison in the system. CXR Results PATIENT: REBECCA CRUZ PRESENT AGE: 51 PATIENT ACCOUNT NO: [id number] : 64 LOCATION: [facility] ORDERING PHYSICIAN: LEANN URIAS MD SERVICE DATE: 09/14/16 EXAM TYPE: RAD - XRY-PORTABLE CHEST XRAY EXAMINATION: XR PORTABLE CHEST CLINICAL INFORMATION: Pneumonia COMPARISON: None TECHNIQUE: Portable frontal view of the chest was obtained. FINDINGS: The lungs are mildly hypoinflated. There is a rounded, approximately 4 cm density overlying the right lung base. No additional consolidation is seen. No evidence of pneumothorax, pleural effusion, or pulmonary edema. Cardiac size is at the upper limits of normal for technique. No acute osseous findings are seen. IMPRESSION: Round 4 cm density overlying the right lung base, suspicious for a mass. Further assessment with contrast-enhanced chest CT is recommended. This critical result was discussed with LEANN URIAS on 09/14/2016 11:43 AM, and it was ascertained that the content and urgency of the report was understood at the time of direct communication. DICTATED BY: RENAE WEINER MD DATE/TIME DICTATED:09/14/161139 DISHROOM ATTENDANT:TRESSA DATE/TIME TRANSCRIBED:09/14/161139 CONFIDENTIAL, DO NOT COPY WITHOUT APPROPRIATE AUTHORIZATION. <Electronically signed in Other Vendor System> SIGNED BY: RENAE WEINER MD 09/14/161147 Assessment/Plan Assessment/Plan Rebecca Cruz is a 51-year-old female with an overdose presumably of Norvasc, labetalol and Xanax. She is unresponsive at this point and borderline hypotensive. Her heart rate is borderline bradycardic. She has been treated with glucagon and is being given IV fluids. Her labs show hyperglycemia and mild hypokalemia. Her urine toxicology is positive for benzodiazepines. She has an abnormal EKG but we don't have any old ones to compare and it is nonspecific. On chest x-ray her heart is somewhat enlarged and she has a right lung mass of uncertain etiology, suspicious for a neoplasm. She is critically ill because of the unknown amount of drugs ingested and uncertain timing. I spoke to her about the serious nature of her condition. At this point we will continue close observation and monitoring. I would replace her potassium. We will continue with IV fluids. She may need support with pressors if her blood pressure drops or she becomes more bradycardic. She will need ICU care. An echocardiogram will be helpful in her care and has been ordered. Consult Acknowledgment - Thank you for your consult request.
--- NOTE | 2016-09-14 13:52 | CT SCAN REPORT ---
EXAMINATION: CT CHEST WITH CONTRAST CLINICAL INFORMATION: Evaluate for lung mass. Patient came in with overdose . No additional prior medical history COMPARISON: Chest x-ray dated 09/14/2016. TECHNIQUE: Multidetector volumetric CT imaging of the chest was obtained after the administration of 98 mL of Optiray 320 intravenous contrast without immediate adverse reactions. Axial MIP volume rendering provided. Sagittal and coronal reformatted images were obtained. DLP: 364.61 mGy-cm FINDINGS: ENGINE COWLING INSTALLER: Round mass right lower lung LUNGS: Evaluation is slightly degraded by patient breathing motion. Elevation of the right hemidiaphragm. Round mass noted in the right middle lobe abutting the diaphragmatic pleura measuring approximately 3.6 x 3.7 x 3.5 cm (series 4 image 184 and sagittal image 88). It is obstructing the lateral segment right middle lobe bronchus. (Series 4 image 183). Subtle nodular opacities noted slightly anterior to the mass (series 4 image 184) measuring approximately 0.3 to 0.4 cm.. These may represent small peribronchial nodules versus mild mucous plugging in the more distal subsegmental bronchi. Linear subsegmental atelectasis also noted inferolateral to the mass. Linear subsegmental atelectatic changes bilateral lung bases. Dependent atelectatic changes also noted along the posterior aspects bilateral lower lobes, right greater than left. Narrowed appearance of the trachea and bronchi compatible with tracheobronchomalacia. MEDIASTINUM: No evidence of lymphadenopathy. Visualized vascular structures appear grossly unremarkable. Mild cardiomegaly. PLEURA: No evidence of pleural effusion. AXILLA: Small axillary lymph nodes. No evidence of lymphadenopathy. UPPER ABDOMEN: Partial visualization of the liver demonstrates hepatomegaly with diffuse decreased hepatic attenuation compatible with hepatic steatosis. Status post cholecystectomy. Spleen is incompletely included in examination. Mild splenomegaly. OSSEOUS STRUCTURES: No acute osseous abnormality no suspicious lytic or sclerotic lesions. Degenerative changes of the thoracic spine. IMPRESSION: 1. Large round 3.6 x 3.7 x 3.5 cm right middle lobe mass obstructing the lateral segment right middle lobe bronchus. Neoplastic process is suspected. Biopsy is recommended. 2. Additional smaller nodular opacities noted slightly anterior to the mass may represent minor mucus plugging or peribronchial/centrilobular nodules. Evaluation is limited due to patient breathing motion. 3. Atelectatic changes right middle lobe and bilateral lung bases. Elevation of the right hemidiaphragm. 4. No evidence of lymphadenopathy. 5. Tracheobronchomalacia 6. Hepatosplenomegaly with hepatic steatosis.
[2016-09-14 14:40] VITALS: BP 64/0
--- NOTE | 2016-09-14 14:40 | NUR ---
RECIEVED PT FROM ER 51 YEAR OLD FEMALE WITH PMHX; DEPRESSION, ANXIETY, HYPOTHYROID AND NON-COMPLIANT DM, PRESENTS TO HOSPITAL VIA AMBULANCE AFTER BEING FOUND ON GROUND BY SON WHO HEARD THE PT FALL IN HER ROOM AND NOTED PILL BOTTLE CLOSE TO HER. PT NOTED OVERDOSE ON XANAX, LABETOLOL AND NORVASC, INDETERMINATE AMOUNT OF TIME SINCE INGESTED. PT IN UNIT AND NOTED LETHARGIC AND NOT RESPONDING TO VERBAL OR TACTILE STIMULI. BP NOTED DECREASED AND SATS STABLE BUT BREATHING IS SOMEWHAT LABORED AND NEEDS ASSISTANCE TO OPEN AIRWAY. DR BARBER, ANESTHESIOLOGY AND HOUSE STAFF CALLED TO BED SIDE. PT WITH LEVOPHED STARTED AT 20 MCG/MIN AND WIDE OPEN NS BOLUS AT 2LITERS PER HOUR STARTED. PT INTUBATED BY ANESTHESIOLOGY AND TLC LINE PLACED TO [facility] FOR PRESSORS TO BE MOVED TO AFTER LINE PLACEMENT CONFIRMED.
--- NOTE | 2016-09-14 15:15 | NUR ---
INSULIN 10 UNITS REGULAR GIVEN PUSH AND DRIP STARTED AT 90 UNITS/HR WITH ACCU CHECK NOTED 406 AND POISON CONTROL CONSULTED ON TX FOR OVERDOSE. GLUCAGON 3MG AND HOUR DRIP RUNNING. DOPAMINE PLACED AT THIS TIME TO HELP WITH BP CONTROL AND HEART RATE CONTROL WITH HEART RATE 40-50 AT THIS TIME AND BP STILL 60-70 SYSTOLIC. SEE FREQUENT VITAL SIGN SHEET FOR FREQUENT ACCU CHECKS AND MEDICATION CHANGES.
--- NOTE | 2016-09-14 15:52 | Cons- Endocrinology ---
General Information and HPI Consulting Request Date of Consult: 09/14/16 Requested By: medical team Reason for Consult: Need for high-dose insulin treatment Source of Information: old records History of Present Illness: This 51-year-old woman with a known history of diabetes and hypothyroidism took an overdose of her husbands medication which included her cheri and calcium channel cheri. She was brought to the emergency room. She initially was treated with glucagon. The patient has become hypotensive and bradycardic. She is on 3 pressors. Plan is to use a high dose insulin drip for treatment of her beta cheri and calcium channel cheri overdose. Allergies/Medications Allergies: Coded Allergies: NO KNOWN ALLERGIES (11/28/14) Home Med List: CYCLOBENZAPRINE HCL (Flexeril) 10 MG TAB 1 TAB PO TID PRN SPASM Avoid operating motor vehicle or heavy machinery Empagliflozin (Jardiance) 10 MG TABLET 25 MG PO DAILY dm (Reported) Ibuprofen (Motrin) 800 MG TAB 1 TAB PO TID PRN PAIN Insulin Glargine,Hum.rec.anlog (Lantus Solostar) 100 UNIT/ML (3 ML) INSULN.PEN 54 UNIT SC QPM dm (Reported) Levothyroxine Sodium (Synthroid) 100 MCG TABLET 1 TAB PO DAILY thyroidism ( Reported) Metformin HCl (Metformin HCl ER) 500 MG TAB.ER.24 1 TAB PO DAILY diabetes ( Reported) Quetiapine Fumarate (Seroquel XR) 400 MG TAB.ER.24H 1 TAB PO QPM depression ( Reported) Current Medications: Current Medications Sig/Kaovn Start time Last Medication Dose Route Stop Time Status Admin Acetaminophen 650 MG Q6P PRN 09/14 1200 AC PO Acetaminophen 1,000 MG Q6P PRN 09/14 1200 AC IV Ampicillin Sodium/ 3,000 MG Q6 09/14 1800 AC Sulbactam Sodium IV Sodium Chloride 100 ML Calcium Gluconate 0 .STK-MED ONE 09/14 1133 DC IV Calcium Gluconate 1 GM ONCE ONE 09/14 1115 DC 09/14 Sodium Chloride 100 ML IV 09/14 1214 1143 Ceftriaxone Sodium 0 .STK-MED ONE 09/14 1134 DC .ROUTE Ceftriaxone Sodium 1,000 MG ONCE ONE 09/14 1115 DC / IV 09/14 1116 1143 Dextrose/Water 1,000 ML .Q8H 09/14 1515 UNVr IV Dopamine HCl 400 MG Q12H 05/ 1500 AC Dextrose/Water 500 ML IV Enoxaparin Sodium 40 MG DAILY 09/15 1000 AC SC Glucagon 3 MG Q1H / 1145 AC 05/12 Dextrose/Water 100 ML IV 1320 Glucagon 5 MG ONCE ONE 09/14 1130 DC 05/ N/A 1 UNIT IV 05/ 1131 1214 Glucagon 0 .STK-MED ONE 09/14 1048 DC .ROUTE Glucagon 5 MG ONCE ONE 09/14 1045 DC 05/ Dextrose/Water 50 ML IV 05/ 1046 1100 Insulin Human Regular 90 UNITS ONCE ONE 09/14 1515 DC IV 05 1516 Insulin Human Regular 10 UNITS ONCE ONE 09/14 1430 DC IV 05/ 1431 Insulin Human Regular 100 UNIT Q24H / 1430 AC Sodium Chloride 100 ML IV Insulin Human Regular 90 UNITS ONCE ONE 09/14 1415 CAN IV 05/ 1416 Insulin Human Regular 100 UNIT Q24H / 1415 CAN Sodium Chloride 100 ML IV Norepinephrine 4 MG Q24H 09/14 1445 AC Sodium Chloride 250 ML IV Ondansetron HCl 4 MG ONCE ONE 09/14 1115 DC 05/ IV 05/ 1116 1119 Ondansetron HCl 0 .STK-MED ONE 09/14 1110 DC .ROUTE Phenylephrine HCl 40 MG Q24H 05/ 1500 CAN Sodium Chloride 250 ML IV Potassium Chloride 10 MEQ ONCE ONE 09/14 1430 DC IV 05/ 1431 Potassium Chloride 10 MEQ ONCE ONE 09/14 1200 DC IV 05/ 1201 Potassium Chloride 10 MEQ ONCE ONE 09/14 1200 DC IV 05 1201 Sodium Chloride 1,000 ML BOLUS ONE 09/14 1445 AC IV 05/12 1644 Sodium Chloride 1,000 ML BOLUS ONE 09/14 1445 AC IV 05/12 1644 Sodium Chloride 1,000 ML BOLUS ONE 09/14 1100 DC 05/ IV 05/ 1159 1102 Sodium Chloride 1,000 ML BOLUS ONE 09/14 1100 DC 05/ IV 05/ 1159 1102 Sodium Chloride 1,000 ML BOLUS ONE 09/14 1000 DC 05/ IV 05/ 1059 1000 Sodium Chloride 1,000 ML BOLUS ONE 09/14 0945 DC 05/ IV 05/ 1044 0953 Vasopressin 40 UNITS Q16H 09/14 1515 AC Sodium Chloride 100 ML IV Past History Travel History Traveled to [place] past 21 day No Medical History Neurological: NONE EENT: NONE Cardiovascular: NONE Respiratory: NONE Gastrointestinal: NONE Hepatic: NONE Renal: NONE Musculoskeletal: NONE Psychiatric: NONE Endocrine: diabetes, hypothyroidism Surgical History Surgical History: cholecystectomy, Family History Relations & Conditions If Any: MOTHER Relation not specified for: FH: diabetes mellitus FH: hypertension Psychosocial History Who Do You Live With? child, self Services at Home: None Primary Language: [place] Smoking Status: Never Smoked ETOH Use: PT SEMI RESPONSIVE Exam & Diagnostic Data Last 24 Hrs of Vital Signs/I&O Vital Signs Date Time Temp Pulse Resp B/P B/P Pulse O2 O2 Flow FiO2 Mean Ox Delivery Rate 09/14 1338 95.2 52 10 88/56 93 Nasal 5.0L Cannula 09/14 1252 50 80/50 09/14 1216 95.8 56 12 88/58 93 Nasal 5.0L Cannula 09/14 1148 50 78/58 09/14 1117 95.4 55 10 88/54 90 Nasal 5.0L Cannula 09/14 1055 56 72/44 09/14 1045 50 10 78/48 90 Nasal 3.0L Cannula 09/14 1020 54 83/54 90 09/14 1002 96.0 09/14 0954 94.3 55 12 89/52 96 / 0934 95.0 57 6 98/63 94 Nasal 2.0L Cannula 09/14 0930 93 Nasal 5.0L Cannula Intake & Output 09/14 1600 / 0800 / 0000 Intake Total 4300 Output Total 300 Balance 4000 Intake, IV 4300 Output, Urine 300 Patient 200 lb Weight Weight Estimated Measurement Method Vital Signs Date Time Temp Pulse Resp B/P B/P Pulse O2 O2 Flow FiO2 Mean Ox Delivery Rate 09/14 1338 95.2 52 10 88/56 93 Nasal 5.0L Cannula 09/14 1252 50 80/50 05 1216 95.8 56 12 88/58 93 Nasal 5.0L Cannula 09/14 1148 50 78/58 09/14 1117 95.4 55 10 88/54 90 Nasal 5.0L Cannula 09/14 1055 56 72/44 /12 1045 50 10 78/48 90 Nasal 3.0L Cannula 09/14 1020 54 83/54 90 09/14 1002 96.0 09/14 0954 94.3 55 12 89/52 96 09/14 0934 95.0 57 6 98/63 94 Nasal 2.0L Cannula 09/14 0930 93 Nasal 5.0L Cannula Intake & Output 09/14 1600 09/14 0800 09/14 0000 Intake Total 4300 Output Total 300 Balance 4000 Intake, IV 4300 Output, Urine 300 Patient 200 lb Weight Weight Estimated Measurement Method Physical Exam General Appearance: sedated, intubated Head: normal appearance Neck: normal inspection Respiratory: normal breath sounds Cardiovascular: regular rate/rhythm Gastrointestinal: normal bowel sounds, soft, non-tender Extremities: normal inspection Labs/Alexis Results: Laboratory Tests 09/14 09/14 09/14 1527 1055 UNK Blood Gas pH (7.35 - 7.45 PH) 7.33 L pCO2 (35 - 45 TORR) 39 pO2 (80 - 100 TORR) 69 L HCO3 (21 - 28 MEQ/L) 20 L ABG O2 Sat (Measured) (>96.0 %) 93.0 L P-50 (Temp Corrected) YES Carboxyhemoglobin (1.5 - 5.0 %) 0.1 L O2 Concentration % 5L Temperature (97.0 - 100.0 FARH) 96.0 L O2 Delivery Method NC Chemistry Sodium Pending Cancelled Potassium Pending Cancelled Chloride Pending Cancelled Carbon Dioxide Pending Cancelled Anion Gap Pending Cancelled BUN Pending Cancelled Creatinine Pending Cancelled Glucose Pending Cancelled Calcium Pending Cancelled Phosphorus Pending Cancelled Magnesium Pending Cancelled Total Bilirubin Pending Cancelled AST Pending Cancelled ALT Pending Cancelled Albumin Pending Cancelled Miscellaneous Phlebotomy Draw Site RIGHT RADIAL Urines Urine Test NEGATIVE 09/14 09/14 0946 0930 Chemistry Lactic Acid (0.7 - 2.1 mmol/L) 1.3 Toxicology Urine Opiates Screen (>2000 NG/ML) < 100.00 Methadone Screen (>300 NG/ML) < 40 Barbiturate Screen (>200 NG/ML) < 60 Ur Phencyclidine Scrn (>25 NG/ML) < 6.00 Amphetamines Screen (>1000 NG/ML) < 100 U Benzodiazepines Scrn (>200 NG/ML) > 800 H Urine Cocaine Screen (>300 NG/ML) < 50 Urine Cannabis Screen (>50 NG/ML) < 5.00 Urines Urinalysis LIGHT H Urine Color (YEL,AMB,STR) YEL Urine Clarity (CLEAR) HAZY H Urine pH (5.0 - 8.0) 6.0 Ur Specific [place] (1.001 - 1.035) 1.025 Urine Protein (NEG,<30 MG/DL) TRACE H Urine Ketones (NEG) TRACE H Urine Nitrite (NEG) POS H Urine Bilirubin (NEG) NEG Urine Urobilinogen (0.1 - 1.0 EU/dl) 0.2 Ur Leukocyte Esterase (NEG) MOD H Ur Microscopic SEDIMENT EXAMINED Urine RBC (0 - 5 /HPF) 25-50 H Urine WBC (0 - 2 /HPF) > 75 H Ur Epithelial Cells (NONE,FEW) MOD H Urine Bacteria (NEG/NONE) PACKD H Urine Hemoglobin (NEG) LARGE H Urine Glucose (N MG/DL) >=1000 H 05/ 0930 Chemistry Sodium (137 - 145 mmol/L) 140 Potassium (3.5 - 5.1 mmol/L) 3.2 L Chloride (98 - 107 mmol/L) 103 Carbon Dioxide (22 - 30 mmol/L) 24 Anion Gap (5 - 16) 12 BUN (7 - 17 mg/dL) 12 Creatinine (0.5 - 1.0 mg/dL) 0.6 Estimated GFR (>60 ml/min) > 60 BUN/Creatinine Ratio (7 - 25 %) 20.0 Glucose (65 - 99 mg/dL) 326 H Hemoglobin A1c (4.2 - 5.8 %) 8.1 H Calcium (8.4 - 10.2 mg/dL) 9.1 Phosphorus (2.5 - 4.5 mg/dL) 4.0 Magnesium (1.6 - 2.3 mg/dL) 1.8 Total Bilirubin (0.2 - 1.3 mg/dL) 1.0 AST (14 - 36 U/L) 22 ALT (9 - 52 U/L) 39 Alkaline Phosphatase (<127 U/L) 108 Total Protein (6.3 - 8.2 g/dL) 6.6 Albumin (3.5 - 5.0 g/dL) 3.6 Globulin (1.9 - 4.2 gm/dL) 3.0 Albumin/Globulin Ratio (1.1 - 2.2 %) 1.2 TSH (0.270 - 4.200 uIU/mL) 2.510 Free T4 (0.64 - 1.79 ng/dL) Pending Cortisol AM Sample (4.46 - 22.7 ug/dL) Pending Coagulation PT (9.4 - 12.5 SEC) 12.0 INR (0.90 - 1.19) 1.14 Hematology CBC w Diff NO MAN DIFF REQ WBC (4.8 - 10.8 /CUMM) 9.0 RBC (4.20 - 5.40 /CUMM) 5.04 Hgb (12.0 - 16.0 G/DL) 11.1 L Hct (37 - 47 %) 34.9 L MCV (81.0 - 99.0 FL) 69.2 L MCH (27.0 - 31.0 PG) 22.1 L RDW (11.5 - 14.5 %) 17.8 H Plt Count (130 - 400 /CUMM) 255 MPV (7.4 - 10.4 FL) 8.2 Gran % (42.2 - 75.2 %) 80.0 H Lymphocytes % (20.5 - 51.1 %) 14.7 L Monocytes % (1.7 - 9.3 %) 5.0 Eosinophils % (0 - 5 %) 0.1 Basophils % (0.0 - 2.0 %) 0.2 Absolute Granulocytes (1.4 - 6.5 /CUMM) 7.2 H Absolute Lymphocytes (1.2 - 3.4 /CUMM) 1.3 Absolute Monocytes (0.10 - 0.60 /CUMM) 0.4 Absolute Eosinophils (0.0 - 0.7 /CUMM) 0 Absolute Basophils (0.0 - 0.2 /CUMM) 0 PUBS MCHC (33.0 - 37.0 G/DL) 31.9 L Toxicology Serum Alcohol (<10 MG/DL) < 10.0 Assessment/Plan Assessment/Plan This patient apparently took large amounts of a calcium channel cheri and a beta cheri in a suicide attempt. The plan is to treat her with a high dose insulin regimen. The insulin dose in the literature is 1 unit per kilogram bolus with regular insulin and a continuous infusion of 0.5-1 unit per kilogram per hour. It should be titrated according to a heart rate of 50 and a systolic blood pressure of 100. The onset of action should be about 45 minutes to two hours and the duration should be done according to the hemodynamic status. If the patient does improve and the decision is made to discontinue the insulin drip, it should be tapered and not stopped abruptly. In order to counteract the effects of the insulin it is recommended that we use a dextrose infusion of the 10% at 125-250 mL per hour. We should keep the glucose about 180-200 range. We need to watch for hypoglycemia which can be treated with 50% glucose and hypokalemia which may require potassium infusions. Her serum calcium should also be monitored. We should check her BUN/creatinine electrolytes every hour initially. We should keep her potassium above 3.2. Because of the risk of hypoglycemia we should check her fingerstick sugar every 15 minutes initially. We can check the patient's cortisol level on the hypotension and also check her free T4 and TSH in view of a history of hypothyroidism. Consult Acknowledgment - Thank you for your consult request.
[2016-09-14 16:00] VITALS: BP 77/40
--- NOTE | 2016-09-14 16:00 | Event Note ---
Event Note Event Note: Poison control was contacted and was updated about the patient's dentition and the management that has already been done on the patient. They recommended that the patient should be given 1 unit/ kg(90 units) of intravenous insulin followed by 1 units per KG of insulin drip. The patient should be having Accu-Cheks every 30 minutes and basic electrolyte panel including potassium levels every 1 hour. This was then discussed in detail with with the patient should be on dextrose D10 maintain his fluid maintainance fluids. After about 15 minutes while the patient was transferred from ED to ICU the patient the patient was found to be hypotensive and her blood pressure was 60 on Doppler her heart rate was also found to be in low 40s. The patient the patient was immediately started on 3 pressors and a triple-lumen in the right IJ was inserted(please review the detailed detailed procedure note when Rylie Luo MD) The patient was also given 90 units of insulin as recommended by the poison control. Patient was intubated by anesthesia at the bedside Follow-up and recommendations: The patient should be started on insulin drip and 90 units Check Accu-Cheks every 15 minutes start the patient on D10 at 150-200 mL /min Continue with pressors and maintain map of greater than 65 IV Unasyn as recommended earlier for aspiration precautions This above plan was discussed in detail with Jacquelin Rose MD, Alexi Hooks MD, and Dr Marquez, who were all present that time of event. Jacquelin Rose MD and myself also updated the patient's family about the patient's current condition. Formal consent for central line and intubation was also obtained. Addendum: The patient acutely decompensated following transfer to the critical care unit. She became hypotensive with a blood pressure in the 60s and heart rate in the 40s despite having received 10 units of IV insulin. The acute decompensation was discussed with poison control, noting the reason for the acute change is due to the peaking blood levels of calcium channel blockers. The above recommendations were instituted. The patient was given 90 units of regular insulin, and started on a high dose insulin drip. D10 was started at 200 ML per hour. Accu-Cheks are being monitored every 15 minutes. Because of the patient' s hypotension, a TLC was placed and she was started on Levophed followed by dopamine and vasopressin with a modest improvement in her blood pressure into the 80s. She was given IV fluid resuscitation in attempt to sustain her blood pressure. She was intubated in the setting of respiratory decompensation. Postintubation ABG showed a pH of 7.18, PCO2 20, PO2 456, bicarbonate of 7, on assist control with a respiratory rate of 28, tidal volume 550, FiO2 100, and PEEP of 5. HCO3 was given as recommended by posion control as well. I discussed the plan of care with the housestaff, cardiology, endocrinology and poison control. I also discussed the case with nephrology regarding the possibility of dialysis, however none of the medications are dialyzable. The patient remains critically ill and continues to deteroriate. I have updated the patient's family at the bedside once again. TTS 120
--- NOTE | 2016-09-14 16:17 | RADIOLOGY REPORT ---
EXAMINATION: XR PORTABLE CHEST CLINICAL INFORMATION: Central line placement COMPARISON: 09/14/2016 TECHNIQUE: Portable 3:43 PM view of the chest was obtained. FINDINGS: Interval placement of ET tube NG tube and central line. These are all satisfactory in position. No pneumothorax. There is also a catheter/tube overlying the right lateral chest. Central line tip overlies the jugular juncture. ET tube is approximately 4 cm above the vida. Right sided lung mass again noted. Low lung volumes. IMPRESSION: Satisfactory positioning of central line as above.
--- NOTE | 2016-09-14 16:19 | Proc Note Internal Medicine ---
AIDEN MORENO MD 09/14/16 1615: Medicine Procedure Procedure Date: 09/14/16 Medical Procedure(s): central venous cath place Pre-Operative Diagnosis: hypotension Post-Operative Diagnosis: same Estimated Blood Loss: scant Anesthesia: local monitored anesthesi Procedure Findings: Informed consent was obtained from the patient's family regarding the procedure. Risks and benefits of the procedure were explained extensively, they wished to proceed. First, a timeout was obtained, patient identifying data was checked and verified by members of the team. The surgical area was cleaned with chlorhexidine scrub. Patient was draped in sterile fashion. Using ultrasound probe, the right internal jugular vein was isolated. 5 mL of local 1% lidocaine was used to numb the skin. Sidelinger technique used. Using a syringe the right IJ was punctured under ultrasound guidance. The syringe was again confirmed by the ultrasound. Over the syringe, guidewire was placed as a syringe was removed. Skin dilator was placed over the guidewire, a small incision was made to advance the dilator. The dilator was then removed. The 3 ports of the central line were flushed to make sure that all 3 ports were working appropriately. Over the guidewire, the central line was placed and advanced up to 14 cm. The central line was then secured by anchor sutures. A Biopatch was applied. 3 hubs were applied to the central line and were flushed. A dry sterile Tegaderm was applied. Blood loss was scant, the patient handled the procedure extremely well. A STAT chest x-ray was obtained, which confirmed appropriate line placement. Dr. Rose was present at bedside during the entire procedure. Jacquelin ROSE MD 09/14/16 1836: Medicine Procedure Procedure Findings: ADDENDUM: Family consent was reviewed. I was present during the placement of the triple- lumen and personally supervised the resident during the procedure. The procedure had no complications associated with it. Post procedure chest x-ray showed good position of the triple-lumen catheter in the superior vena cava.
--- NOTE | 2016-09-14 17:05 | Event Note ---
Event Note Event Note: I had a conversation with the poison control physician at [place] at around 4:30 PM. He recommended going up on the insulin dose by 1 unit per KG every 15-20 minutes if the blood sugars do not budge. CCB poisoning causes hyperglycemia which is refractory to high-dose insulin therapy. Therefore we should be very aggressive with the insulin regime. Fingersticks should be checked every 15 minutes and euglycemia maintained through IV dextrose infusion and dextrose pushes as needed. Serum potassium concentration should be checked every 1 hour ( icu bundle) and should be maintained in the low normal range. Magnesium level should be maintained. If the patient is acidotic IV bicarbonate pushes can be given simultaneously. IV insulin is the only way to overcome the CCB toxicity over the myocardium. At this time patient remains on 3 pressors. Insulin drip is at 270 units per hour, glucagon drip and IV fluids with dextrose 10. Addendum: Discussed plan with housestaff and nursing. We will continue to follow poison control's recommendations. The patient continues to do poorly and has worsening decompensation. Asians family was again updated.
[2016-09-14 17:07] LABS: PT 14.6 SEC (9.4-12.5)
--- NOTE | 2016-09-14 17:30 | Event Note ---
Event Note Event Note: Spoke to the poison control again and updatd about the the patient's current condition and her recent Accu-Cheks and laboratory findings The recommended the following 1. They recommended that we should increase the insulin drip by 1 unit /kgevery 15 minutes.(That is 90 units increase every 15 minutes until her blood pressure is responding) 2. Discontinue normal saline fluid and keep the patient on D10 @200-300 mL per hour. They also recommended that the patient becomes hypoglycemic, then we can switch D10 to D20 or25 depending on the patient's glucose level. 3. Continue checking Accu-Cheks every 15 minutes This was discussed in detail with Dr. Rose, ICU co resident RN, at the bedside. Addendum: The patient is currently being treated as recommended above. Case discussed with housestaff and patient's family. She remains critically ill.
[2016-09-14 19:22] LABS: ABSOLUTE BASOPHIL COUNT 0 /CUMM (0.0-0.2); ABSOLUTE EOSINOPHIL COUNT 0 /CUMM (0.0-0.7); ABSOLUTE LYMPH COUNT 0.9 /CUMM (1.2-3.4); BASOPHIL % 0 % (0.0-2.0); EOSINOPHIL % 0 % (0-5)
[2016-09-14 19:25] LABS: ABSOLUTE GRANULOCYTE CT 19.3 /CUMM (1.4-6.5); ABSOLUTE MONOCYTE COUNT 0.9 /CUMM (0.10-0.60); HEMATOCRIT 30.1 % (37-47); MEAN CORPUSCULAR HGB 21.9 PG (27.0-31.0); MEAN CORPUSCULAR HGB CONC 30.5 G/DL (33.0-37.0); MEAN CORPUSCULAR VOLUME 71.6 FL (81.0-99.0); MEAN PLATELET VOLUME 9.2 FL (7.4-10.4); PLATELET COUNT 171 /CUMM (130-400); RBC DISTRIBUTION WIDTH 17.9 % (11.5-14.5); RED BLOOD CELL CT 4.21 /CUMM (4.20-5.40)
[2016-09-14 19:27] LABS: GRANULOCYTE % 91.5 % (42.2-75.2); WHITE BLOOD CELL COUNT 21.1 /CUMM (4.8-10.8)
--- NOTE | 2016-09-14 19:30 | Event Note ---
Event Note Event Note: 7:30 pm- I spoke with Dr. Chris Haji at poison control. We reviewed her labs, and the fact that she is currently on 720 units of insulin per hour. Her potassium at present is 3.2 and magnesium is 1.4. Dr. Haji recommended repleting potassium with 40 meq's IV and magnesium 1 g IV. Jacquelin Rose MD who is present at bedside, was notified. Update 7:52 pm- Got a call on my cell phone from Dr. Chris Haji regarding an update on the patient. He recommends that we discontinue the D10 drip. Jacquelin Rose MD who is present at bedside was notified. Update 8:14pm- Got a repeat call on my cell phone from Dr. Chris Haji regarding an update on the patient. At present the insulin drip is running at 900 Units/ hr (10 units/ kg/hr). He recommends that we do not increase the insulin rate any further. He also recommends that we start lipid emulsion therapy. Lipid emulsion 20%, Bolus 1.5 cc/ kg, given over 1 minute Then, 15 cc/ kg/ hr, continuous drip Jacquelin Rose MD who is present at bedside was notified. Update 9:44 pm- I called poison control as her BS was 213 mg/dl. They recommend that we DO NOT CHANGE the insulin dose and keep it at 900 U/ hr. If her BS falls below 200, we can do q15 minute accucheks like we are already doing and give pushes of D50. Lipid emulsion therapy has been started as per their recommendations. Per posion control we should try and down-titrate the pressors and the insulin drip with be the last med that should be touched/ titrated. Jacquelin Rose MD who is present at bedside was notified. Update 11:55pm- Levophed was shut off at 11:40 PM, her MAP remains over 65 mm Hg. Dopamine is currently being down titrated and running at 14 mcg. Jacquelin Rose MD who is present at bedside was notified. Update 12:30 AM- I spoke with poison control. Thus far she has gotten roughly 3 hrs worth of lipids at the current rate of 1350 cc/hr. They recommend 900 cc/ hr for 1 hour, then 450 cc/ hr for 1 hour and then stop which will be around 2:30 AM. They also stated that her ABG while she is receiving lipids is not accurate. An ABG will be obtained 1 hr after the lipids have been stopped, per their suggestion. Jacquelin Rose MD who is present at bedside was notified.
--- NOTE | 2016-09-14 20:51 | Admission Certification ---
Admission Certification Certification Statement - As attending physician, I certify that at the time of - admission, based on clinical presentation, severity of - symptoms, need for further diagnostic testing and - therapeutic interventions, and risk of adverse outcomes - without in-hospital treatment, in my clinical assessment, - this patient requires an acute hospital stay for a minimum - of two nights or longer. I have also considered psychsocial - factors such as support system, advanced age, financial - issues, cognitive issues, and failed out-patient treatments, - past re-admission history, safety of patient, and lack of - compliance as applicable. Specific rationale supporting this admission is: Polypharmacy drug overdose, suicide attempt, resulting in hypotension and bradycardia. The patient needs critical care monitoring and treatment.
--- NOTE | 2016-09-14 20:56 | Event Note ---
Event Note Event Note: I have personally seen and examined the patient once again. She remains critically ill, on mechanical ventilation. Her arterial blood gases have slowly improved with bicarbonate therapy. Additional bicarbonate will be given and an ABG will be taken in 1 hour. We have increased the insulin drip as recommended, noting she is now on the maximum dose of 900 units of regular insulin per hour. She remains on Accu-Cheks every 15 minutes. Her blood sugar has ranged in the 300s to 400s. In general, the patient's heart rate has improved and is now in the 60s. Her blood pressure is in the mid to high 80s. She remains on maximum doses of Levophed, dopamine and vasopressin. She is making adequate urine. She is intermittently agitated but not purposeful, requiring small doses of Ativan for control. Electrolytes are being repleted. The patient's most recent lactic acid was greater than 16. The patient was hypothermic with a core body temperature of 92, and the Sharmila hugger was placed on the patient for rewarming. The case was once again discussed with poison control and because the patient 's blood sugars are not dropping, the D10 drip will be discontinued. We will also start a lipid emulsion treatment for the calcium channel cheri overdose. If the patient's blood sugar begins to drop, and her hemodynamics begin to improve, we can begin titration of the insulin drip but will closely follow poison controls protocol. I have discussed the plan of care with the housestaff and nursing in detail. I have updated the family at the bedside as well. TTS 60
[2016-09-15] VITALS: BP 96/00
[2016-09-15 00:12] LABS: ABSOLUTE BASOPHIL COUNT 0 /CUMM (0.0-0.2); ABSOLUTE EOSINOPHIL COUNT 0 /CUMM (0.0-0.7); ABSOLUTE GRANULOCYTE CT 19.9 /CUMM (1.4-6.5); ABSOLUTE LYMPH COUNT 2.2 /CUMM (1.2-3.4); ABSOLUTE MONOCYTE COUNT 1.4 /CUMM (0.10-0.60); BASOPHIL % 0 % (0.0-2.0); EOSINOPHIL % 0.1 % (0-5); GRANULOCYTE % 84.4 % (42.2-75.2); HEMATOCRIT 25.4 % (37-47); MEAN CORPUSCULAR HGB CONC 30.8 G/DL (33.0-37.0); MEAN CORPUSCULAR VOLUME 71.4 FL (81.0-99.0); RBC DISTRIBUTION WIDTH 18.1 % (11.5-14.5); RED BLOOD CELL CT 3.56 /CUMM (4.20-5.40)
[2016-09-15 00:14] LABS: WHITE BLOOD CELL COUNT 27.5 /CUMM (4.8-10.8)
[2016-09-15 00:15] LABS: MEAN PLATELET VOLUME 8.9 FL (7.4-10.4); PLATELET COUNT 238 /CUMM (130-400)
--- NOTE | 2016-09-15 05:18 | Event Note ---
Event Note Event Note: 0200 hrs. * Titrated off Levophed and dopamine * MAPS average 65-72 * No evidence of tachycardia at this time * I contacted poison control and spoke with Dr. Haji to clarify possible hypotension/decrease in MAP in the setting of titrating off pressors and decreased oncotic gradient that may results with titrating off IV lipids. * Jacquelin Rose MD who is present at bedside was notified. 0230 hrs.: * Lipids previously running at 450 per hour discontinued * No evidence of tachycardia and MAPs remain in the 60s * Jacquelin Rose MD who is present at bedside was notified. 0330 hrs: * Decreased insulin from 900 units per hour down to 810 units an hour * Jacquelin Rose MD who is present at bedside was notified. 0400 hrs: * MAPs dropped to 55, SBP 80s to 90s, no evidence of tachycardia * Monitored her vitals and UOP for the next 15 minutes and sequently restarted the following agents: * Increased insulin drip back to 900 units/hr * Restarted lipids at 450/hr and titrated up to 900 * Restarted Levophed, vasopressin and dopamine with target MAP >65 while monitoring UOP * Fluid challenge with normal saline 250 mL with noticeable improvement in UOP * MAPs maintained above 65 * NB: Due to elevated lipid content and blood samples there was significant delay in analyzing electrolytes. Lab results from 2300 hrs. were initially present around 3 AM. Additionally, poison control had cautioned on the possibility that labs results would be unreliable while the patient is on such high levels of lipids * Hypokalemia: Potassium supplementation continued with 20mEq KCl, monitored telemetry for evidence of U waves. Magenesium levels followed * Low bicarbonate/acidosis on ABG: NaHCO AMPs Q15 minutes * Hypocalcemia: corrrected showed low normal range * Jacquelin Rose MD who is present at bedside was notified.
--- NOTE | 2016-09-15 05:45 | RADIOLOGY REPORT ---
EXAMINATION: XR PORTABLE CHEST CLINICAL INFORMATION: Pulmonary congestion versus pneumonia. Intubated. COMPARISON: 09/14/2016 TECHNIQUE: Portable frontal view of the chest was obtained. FINDINGS: Patient positioning limits evaluation. Endotracheal tube terminates 2.5 cm above the vida. Right internal jugular central venous catheter terminates near the cavoatrial junction. Cardiac leads overlie the chest. Significantly low lung volumes. Right basilar lung mass remains. No additional gross abnormality. No pneumothorax. The cardiomediastinal silhouette is unchanged.. IMPRESSION: Endotracheal tube terminating 2.5 cm above the vida. Redemonstration of the right basilar mass.
[2016-09-15 06:43] LABS: PT ND SEC (9.4-12.5)
[2016-09-15 07:07] LABS: HEMATOCRIT 32.3 % (37-47); PLATELET COUNT 271 /CUMM (130-400)
--- NOTE | 2016-09-15 07:24 | Event Note ---
Event Note Event Note: SITUATION: * Pauses on EKG * Bradycardia and WV interval prolongation * Cardiac arrest and successful CPR * Second cardiac arrest BRIEF/ASSESSMENT/RECEOMMENDATIONS: * At approximately 5:40 AM Intermittent pauses noted on general scrap worker and subsequent WV prolongation with bradycardia * Code 3 (cardiac arrest code) initiated at 0545 hrs. Code was run by supervising critical care attending Jacquelin Rose MD * Atropine 0.5 mg 1 however persistent bradycardia, atropine 1 mg 1 administered with no change in EKG * No pulse appreciated thus CPR initiated for PEA * CPR for 6-7 minutes per ACLS protocol. ROSC, SBP in the 130s, HR 80s to 90s. Events were discussed with family by critical-care supervising attending Jacquelin Rose MD * NB: IV pressors on board prior to this included Levophed, vasopressin and dopamine * NB: Fentanyl for sedation had been titrated down prior to cardiac arrest * Repeat EKG did show pre-existing right bundle branch block, left anterior fascicular * CXR: Endotracheal tube 2.2 cm above vida. Right IJ central line tip at proximal right atrium. NG tube seen to level diaphragm and then imperceptible against background abdominal density. Low lung volumes. Coarsening bronchiolar markings. Suspected right base mass again noted * NB: Due to significant lipid content in blood samples there was prolonged time with analyzing blood samples from both chemistries and ABGs * Second Code 3 (cardiac arrest code) initiated at 0739 in the setting of WV prolongation and bradycardia. PEA noted on physical exam and CPR was again initiated per ACLS protocol. The code was run for 15 minutes at which point decision was made by family to stop CPR * Code was run by supervising critical care attending Jacquelin Rose MD I have reviewed the above and agree with the assessment and plan. Discussed with patient's family.
--- NOTE | 2016-09-15 07:49 | NUR ---
0700= HR DECREASED TO [address] SB. BBB[address] PAUSES NOTED. [address] BARBER TO BEDSIDE. BP 60'S. MAX ON ALL PRESSORS. ATROPINE GIVEN WITHOUT EFFECT. 0705=PEA ON MONITOR. NO PULSES. CODE 3 CALLED, SEE CODE FLOWSHEET, PULSES RETURNED. REPORT GIVEN TO ONCOMING RN. FAMILY UPDATED BY DR BARBER.
[2016-09-15 08:00] VITALS: BP 96/0
--- NOTE | 2016-09-15 08:50 | RADIOLOGY REPORT ---
EXAMINATION: XR PORTABLE CHEST CLINICAL INFORMATION: Status post CPR. Intubated. COMPARISON: Portable chest 09/15/2016, 09/14/2016 x 2. TECHNIQUE: Supine portable AP view of the chest is performed in 2 views at 0812 hours. FINDINGS: Endotracheal tube is seen with tip approximately 2.2 cm above vida. There is right internal jugular central venous line with tip at proximal right atrium. Nasogastric tube is faintly seen to the level of the diaphragm and then imperceptible against the background density of the abdomen. There are low lung volumes. No visible basilar pneumothorax. Suspected right base mass again seen. There is coarsening of the bronchiolar markings. No new airspace consolidation or gross effusion. There is mild cardiomegaly similar to prior studies. Hilar and mediastinal contours unremarkable for portable AP chest with poor inspiration. IMPRESSION: 1. Endotracheal tube 2.2 cm above vida. 2. Right IJ central line tip at proximal right atrium. 3. NG tube seen to level diaphragm and then imperceptible against background abdominal density. 4. Low lung volumes. Coarsening bronchiolar markings. Suspected right base mass again noted.
--- NOTE | 2016-09-15 09:24 | Event Note ---
Event Note Event Note: S: Following initial code at 7.05 am. Patient was subsequently stabilized and had ROSC. 8.05. On Initial Assessment: Pupils Dilated and Fixed. Intermittent Pauses noted on community relations representative. B: 8.53 AM, PEA and a CODE 3 called. CPR ensued for the next fifteen minutes. Epinephrine: x4 Bicarbonate: x2 Calcium Gluconate: x1 Magnesium: x1 A/R:Patient pronounced at 9.08 AM. Family present, updated and condolences given. Code leader: Jacquelin Rose MD. Present during entire time. I have personally cared for the patient during the aforementioned events. The patient went into cardiac arrest for a second time. This was preceded by a rapid decrease in what pressure, followed by pauses leading to asystole despite atropine. The patient was resuscitated according to ACLS guidelines. CPR and ACLS was performed for 15 minutes with the family present. The patient had no return of spontaneous circulation, noting she remained in asystole for the entire 15 minutes despite aggressive management. The patient's blood sugars were checked which remained in the 200s without evidence of hypoglycemia. All pressors were continued throughout the code. I discussed the current medical condition with the patient's family, and the decision was made to discontinue all care. The patient was pronounced at 9:08 AM. The medical operations supervisor was contacted, noting the patient will be examined by the state.
--- NOTE | 2016-09-15 09:39 | NUR ---
PREV CODE CALLED AT [phone] @0800-THIS RN TOOK OVER CARE OF PT. PT UNRESPONSIVE WITH PUPILS FIXED AND DILATED 6MM-REPORTED TO HOUSESTAFF AND AT BEDSIDE TO ASSESS. BILAT WRIST RESTRAINTS REMOVED AT THIS TIME DUE TO NO ATTEMPTS AT PULLING AT LINES OR TUBES. FENT GTT HAS BEEN OFF SINCE 0500. NO RESPONSE TO PAINFUL/TACTILE STIMULI. CONT ON VENT-AC 30, VT 550, FIO2 100%, PEEP 5. O2SAT 95-96%. DIM BS TO BASES. ORALLY SUCTIONED. MIN ETT SECRETIONS. NSR BBB. HR 80-90S. CVP 28. JUAN M AND CVP ZEROED. REPEAT LABS INCLUDING ICU BUNDLE, LACTIC ACID AND ABO CONFIRMATION DRAWN AT THIS TIME. KCL 20MEQ BOLUS INFUSING AT THIS TIME. R NGT NOTED AT 60CM TO LWS WITH GREEN DRAINAGE NOTED. SWIFT IN PLACE WITH 40ML CLOUDY URINE NOTED. SKIN INTACT WITH +[address] EDEMA[address] ALPS IN PL[address]. INSULIN GTT INFUSING AT 900UNITS/HR WITH ACCUCHECKS [id number] ICU FLOWSHEET FOR DETAILS. LIPIDS INFSUING AT 900ML/HR. LEVO INFUSING AT MAX DOSE, VASO INFUSING AT 6ML/HR (0.04UNITS). DOPAMINE INFUSING AT MAX DOSE. @0830-PT BECAME HYPOTENSIVE 70/DOPPLER. 1 AMP BICARB ADMINISTERED AT THIS TIME. BP IMPROVED TO 90/DOPPLER. ACCUCHECK 215. @0845-PT AGAIN HYPOTENSIVE WITH RHYTHM CHANGE-UT INTERVAL PROLONGED AND WIDENED QRS COMPLEX. PT BECOMING HYPOTENSIVE, BP 80/DOPPLER. 2ND BICARB ADMINISTERED AT THIS TIME. @0850-PT BECOMING BRADYCARDIC HR 50S-1MG ATROPINE ADMINISTERED. @0853-LOST PULSE, PEA. CODE CALLED. CPR INITIATED. SEE CODE SHEET FOR DETAILS (EPI X 4, BICARB X 2, CA GLUCONATE X 1, MAG 1GM X 1, COMPRESSIONS X 15MIN.) CODE CALLED AT 0908, PT ASYSTOLE. PASTORAL CARE AT BEDSIDE, ADMITTING AND [facility] ORGAN BACK CONTACTED. TUNNEL KILN OPERATOR CALLED BY HOUSESTAFF. COMFORT CART AT BEDSIDE.
--- NOTE | 2016-09-15 14:41 | Discharge Summary ---
Visit Information Visit Dates Admission Date: 09/14/16 Discharge Date: 09/15/16 Hospital Course Course Attending Physician: Jacquelin BARBER MD Primary Care Physician: BRYANT NIXON,GEO Riggs Consulting Request: 1 Consulting Specialty: Cardiology Consulting Physician: Dr. Annamaria MD Reason for Consult: Hypotension in the setting of beta cheri and CCB overdose Consulting Request: 2 Consulting Specialty: Endocrinology Consulting Physician: Dr. Neva MD Reason for Consult: High dose insulin drip in the setting of calcium channel cheri overdose Hospital Course: Ms. Anthony Aden is a 51 year old female with PMH IDDM, anxiety, depression and hypothyroidism who presented to [facility] on 09/14/16 after having overdosed on an unknown amount of labetalol (100 mg tablets), amlodipine (5 mg tablets) and xanax (0.5 mg tablets). Of note, patient has an extensive psychiatric history and was recently unable to fill her prescription of seroquel secondary to insurance issues. She had also been experiencing a lot of social stresses, including going through a divorce and extensive stresses at the workplace. Due to these circumstances, Keiko had had persistent suicidal thoughts for the last three days, as noted by her son. Vital signs on presentation: BP 80/50, RR 18, HR 52, T afebrile. Labs were significant for: WBC 10,000, normal H&H, normal chemistries, lactic acid of 1.3, glucose of 326 and no anion gap. CXR showed 4 cm round density overlaying the right lung base, suspicious for a mass. CTchest showed large 3.6 x 3.7 x 3.5 cm right middle lobe mass obstructing the lateral segment right middle lobe bronchus. Neoplastic process is suspected. Additional smaller nodular opacities noted slightly anterior to the mass may represent minor mucus plugging or peribronchial/centrilobular nodules.Atelectatic changes right middle lobe and bilateral lung bases. Elevation of the right hemidiaphragm. Tracheobronchomalacia. Hepatosplenomegaly with hepatic steatosis. Patient was transported to the ICU and the following was addressed: 1. Beta-cheri and calcium channel cheri overdose: Patient was started on boluses of normal saling, glucagon drip and high dose insulin drip with 10% dexrose. RIght IJ central line was placed successfully and patient was started on levophed due to persistently low blood pressure/MAP. The addition of dopamine and vasopressin followed as patient's blood pressure did not respond to initial levophed and normal saline. Endocrinology and cardiology input much appreciated and helped during initial stabilization of patient. Electrolytes were checked Q 1 hour and electrolytes repleted, specifically KCL, magnesium and bicarbonate as these were noted to be significantly low. Patient was then started on lipid emulsion therapy as she continued to be hypotensive. Patient improved slightly throughout the evening and levophed, dopamine, vasopressin and lipid emulsion ultimately titrated off. Patient then had a rapid response early on the second day of admission and patient subsquently went into PEA. ROSC acheived after 3 doses of epi and one dose of calcium gluconate given. Subsequent code called around 9 AM after bradycadia did not respond to atropine and PEA was seen on hospital monitor. Epi x 4, bicarb x 2, calcium gluconate x 1 and magnesium x 1 administered. Patient had no ROSC and was pronounced at 9:08 AM. Family was updated and medical records technician updated. 2. Xanax overdose: Patient was started on CIWA protocol and IV ativan was given Q1P for anxiety/jittery/tremor/insomnia. This was discontinued as patient was pronounced at 9:08 AM after second code 3 on day 2 of admission. 3. Aspiraton pneurmonia: Patient was given one dose of ceftriaxone in the emergency room and due to lethargy resulting from overdose, patient was continued on unasyn empirically. She also received vancoymcin for antibiotic coverage, though these were discontinued after the second code was called on day 2 of admission. 4. Code: FULL Complications: Note above. Allergies: Coded Allergies: NO KNOWN ALLERGIES (11/28/14) Significant Procedures: 1. Patient had right IJ central line placed on admission to the ICU 2. Patient was intubated on admission to the ICU Chest CT: IMPRESSION: 1. Large round 3.6 x 3.7 x 3.5 cm right middle lobe mass obstructing the lateral segment right middle lobe bronchus. Neoplastic process is suspected. Biopsy is recommended. 2. Additional smaller nodular opacities noted slightly anterior to the mass may represent minor mucus plugging or peribronchial/centrilobular nodules. Evaluation is limited due to patient breathing motion. 3. Atelectatic changes right middle lobe and bilateral lung bases. Elevation of the right hemidiaphragm. 4. No evidence of lymphadenopathy. 5. Tracheobronchomalacia CXR: FINDINGS: Endotracheal tube is seen with tip approximately 2.2 cm above vida. There is right internal jugular central venous line with tip at proximal right atrium. Nasogastric tube is faintly seen to the level of the diaphragm and then imperceptible against the background density of the abdomen. There are low lung volumes. No visible basilar pneumothorax. Suspected right base mass again seen. There is coarsening of the bronchiolar markings. No new airspace consolidation or gross effusion. There is mild cardiomegaly similar to prior studies. Hilar and mediastinal contours unremarkable for portable AP chest with poor inspiration. IMPRESSION: 1. Endotracheal tube 2.2 cm above vida. 2. Right IJ central line tip at proximal right atrium. 3. NG tube seen to level diaphragm and then imperceptible against background abdominal density. 4. Low lung volumes. Coarsening bronchiolar markings. Suspected right base mass again noted. Disposition Summary Disposition Principal Diagnosis: Norvasc overdose Labetolol overdose Xanax overdose Suicide attempt Additional Diagnosis: Hypothyroidism Severe depression Severe anxiety Discharge Disposition: Discharge Instructions General Discharge Information Code Status: Full Code Patient's Diet: NPO Patient's Activity: . Follow-Up Instructions/Appts: None. Copies To: Jacquelin BARBER MD; NEVA NIXON,LEANN Gonzalez; ANNAMARIA NIXON,ANNA Novoa MD Review Statement Documenting Attending: Jacquelin BARBER MD
== END 2016-09-15 09:08 | disposition expired | DRG 812 ==
LOC: ERH 09:17 → ERHI 11:41 → ENRESERV 12:15 → CRI 14:14
PROVIDERS: Emergency Medicine; Internal Medicine; ADMIT Internal Medicine Pulmonary Disease
PROC: 02HV33Z Insertion of Infusion Device into Superior Vena Cava, Percutaneous Approach (ICD-10-PCS; principal; 2016-09-14)
PROC: 5A1935Z Respiratory Ventilation, Less than 24 Consecutive Hours (ICD-10-PCS; 2016-09-14)
PROC: 0BH17EZ Insertion of Endotracheal Airway into Trachea, Via Natural or Artificial Opening (ICD-10-PCS; 2016-09-14)
DX: T44.8X2A Poisoning by centrally-acting and adrenergic-neuron-blocking agents, intentional self-harm, initial encounter (principal); J69.0 Pneumonitis due to inhalation of food and vomit; I95.2 Hypotension due to drugs; T46.1X2A Poisoning by calcium-channel blockers, intentional self-harm, initial encounter; T42.4X2A Poisoning by benzodiazepines, intentional self-harm, initial encounter; Y92.009 Unspecified place in unspecified non-institutional (private) residence as the place of occurrence of the external cause; E03.9 Hypothyroidism, unspecified; F32.9 Major depressive disorder, single episode, unspecified; F41.9 Anxiety disorder, unspecified; E11.9 Type 2 diabetes mellitus without complications; Z79.4 Long term (current) use of insulin; I45.10 Unspecified right bundle-branch block; R00.1 Bradycardia, unspecified; I46.9 Cardiac arrest, cause unspecified; R91.8 Other nonspecific abnormal finding of lung field; R68.0 Hypothermia, not associated with low environmental temperature; E87.6 Hypokalemia
CPT/HCPCS: 87184; CCU; 36415; 80307; 81001; 81025; 82436; 87040; 87070; 87086; 87147; 93005; 93010; 94799; 96361; 96365; 96374; 96375; 99291; G0480; J0610; J0696; J1265; J1610; J1650; J1815; J2060; J2405; J3010; J3370; J7040; J7060